=== PATIENT | male | born 1955 | race Caucasian/White ===

== ENCOUNTER 2018-03-06 03:20 | Outpatient (RCR) | payer BC, SELFPAY ==
[2018-03-06] MEDS: Normal Saline Flush 10 ML SYR IVP (07:47)
[2018-03-06 07:57] VITALS: BP 129/77; PULSE 63
[2018-03-06] MEDS: IMMUNE GLOBULIN 10 GM/100 ML BTL 1.2 GM IV (07:58)
[2018-03-06 08:05] VITALS: BP 123/76; PULSE 63
[2018-03-06 08:20] VITALS: BP 118/74; PULSE 56
[2018-03-06 10:15] VITALS: BP 116/72; PULSE 79
[2018-03-06 14:13] VITALS: BP 131/73; PULSE 54
== END 2018-03-28 ==
LOC: INF 03:20
PROVIDERS: PCP Internal Medicine; Visit Provider Family Medicine
DX: G62.89 Other specified polyneuropathies (principal)
CPT/HCPCS: 96365; 96366; J1561

== ENCOUNTER 2018-04-01 01:40 | Outpatient (RCR) | payer BC, SELFPAY ==
[2018-04-01 08:10] VITALS: BP 113/66; PULSE 73; RESP 18; TEMP 36.7
[2018-04-01] MEDS: IMMUNE GLOBULIN 10 GM/100 ML BTL IVPB (08:12)
[2018-04-01] MEDS: Normal Saline Flush 10 ML SYR IVP (08:15)
[2018-04-01 08:30] VITALS: BP 90/54; PULSE 67; RESP 18; TEMP 36.6
[2018-04-01 08:46] VITALS: BP 108/63; PULSE 65; RESP 18; TEMP 36.6; O2SAT 95
[2018-04-01] MEDS: IMMUNE GLOBULIN 20 GM/200 ML BTL IVPB (09:11)
[2018-04-01 09:14] VITALS: BP 114/68; PULSE 58; RESP 18; TEMP 36.6; O2SAT 96
[2018-04-01] MEDS: IMMUNE GLOBULIN 40 GM/400 ML BTL IVPB (10:44)
== END 2018-04-27 23:59 | disposition home or self-care (01) ==
LOC: INF 01:40
PROVIDERS: PCP Internal Medicine; Visit Provider Family Medicine
DX: G62.89 Other specified polyneuropathies (principal)
CPT/HCPCS: 96365; 96366; J1459

== ENCOUNTER 2018-04-29 01:20 | Outpatient (RCR) | payer BC, SELFPAY ==
[2018-04-29] MEDS: IMMUNE GLOBULIN 10 GM/100 ML BTL IVPB (08:27)
[2018-04-29 08:36] VITALS: BP 109/71; PULSE 67; RESP 18; TEMP 37; O2SAT 95
[2018-04-29 08:50] VITALS: BP 103/63; PULSE 66; RESP 18; TEMP 37; O2SAT 96
[2018-04-29 09:05] VITALS: BP 119/68; PULSE 62; RESP 18; TEMP 36.9; O2SAT 95
[2018-04-29 09:35] VITALS: BP 121/73; PULSE 65; RESP 18; TEMP 36.7; O2SAT 94
[2018-04-29] MEDS: IMMUNE GLOBULIN 20 GM/200 ML BTL IVPB (09:42)
[2018-04-29 10:17] VITALS: BP 114/76; PULSE 56; RESP 17; TEMP 36.7; O2SAT 95
[2018-04-29 10:45] VITALS: BP 116/82; PULSE 55; RESP 17; TEMP 37; O2SAT 94
[2018-04-29] MEDS: IMMUNE GLOBULIN 40 GM/400 ML BTL IVPB (11:25)
[2018-04-29] MEDS: Normal Saline Flush 10 ML SYR IVP (15:00)
== END 2018-05-28 23:59 | disposition home or self-care (01) ==
LOC: INF 01:20
PROVIDERS: PCP Internal Medicine; Visit Provider Family Medicine
DX: G62.89 Other specified polyneuropathies (principal)
CPT/HCPCS: 96365; 96366; J1459

== ENCOUNTER 2018-06-04 01:23 | Outpatient (RCR) | payer BC, SELFPAY ==
[2018-06-04] VITALS (13 sets, daily range): BP systolic 107–140; BP diastolic 59–91; PULSE 44–71; RESP 18–20; TEMP 36.3–36.6; O2SAT 94–97
[2018-06-04] MEDS: Normal Saline Flush 10 ML SYR IVP (07:57)
[2018-06-04] MEDS: IMMUNE GLOBULIN 10 GM/100 ML BTL IVPB (08:03)
[2018-06-04] MEDS: IMMUNE GLOBULIN 20 GM/200 ML BTL IVPB (08:04)
[2018-06-04] MEDS: IMMUNE GLOBULIN 40 GM/400 ML BTL IVPB (08:05)
== END 2018-06-27 23:59 | disposition home or self-care (01) ==
LOC: INF 01:23
PROVIDERS: PCP Internal Medicine; Visit Provider Family Medicine
DX: G62.89 Other specified polyneuropathies (principal)
CPT/HCPCS: 96365; 96366; J1459

== ENCOUNTER 2018-07-08 01:36 | Outpatient (RCR) | payer BC, SELFPAY ==
[2018-07-08] VITALS (9 sets, daily range): BP systolic 114–135; BP diastolic 71–87; PULSE 50–75; RESP 14–16; TEMP 36.2–36.6; O2SAT 96–97
[2018-07-08] MEDS: IMMUNE GLOBULIN 10 GM/100 ML BTL 7 GM IVPB (08:36)
[2018-07-08] MEDS: IMMUNE GLOBULIN 20 GM/200 ML BTL IVPB (09:30)
[2018-07-08] MEDS: IMMUNE GLOBULIN 40 GM/400 ML BTL IVPB (11:00)
[2018-07-08] MEDS: Normal Saline Flush 10 ML SYR IVP (12:19)
== END 2018-07-28 23:59 | disposition home or self-care (01) ==
LOC: INF 01:36
PROVIDERS: PCP Internal Medicine; Visit Provider Family Medicine
DX: G62.89 Other specified polyneuropathies (principal)
CPT/HCPCS: 96365; 96366; J1459

== ENCOUNTER 2018-08-06 00:54 | Outpatient (RCR) | payer BC, SELFPAY ==
[2018-08-06 08:32] VITALS: BP 115/77; PULSE 76; RESP 18; TEMP 36.4; O2SAT 94
[2018-08-06] MEDS: IMMUNE GLOBULIN 10 GM/100 ML BTL 1.2 GM IVPB (08:49)
[2018-08-06 08:50] VITALS: BP 130/70; PULSE 73; RESP 18; TEMP 36; O2SAT 93
[2018-08-06] MEDS: Normal Saline Flush 10 ML SYR IVP (08:50)
[2018-08-06 09:05] VITALS: BP 104/62; PULSE 70; RESP 18; TEMP 36.4; O2SAT 94
[2018-08-06 09:25] VITALS: BP 109/61; PULSE 69; RESP 18; TEMP 36.2; O2SAT 95
[2018-08-06 09:40] VITALS: BP 105/61; PULSE 55; RESP 18; TEMP 36.4; O2SAT 95
[2018-08-06] MEDS: IMMUNE GLOBULIN 20 GM/200 ML BTL IVPB (10:00)
[2018-08-06 10:02] VITALS: BP 122/79; PULSE 50; RESP 18; TEMP 36.3; O2SAT 96
[2018-08-06] MEDS: IMMUNE GLOBULIN 40 GM/400 ML BTL IVPB (11:32)
== END 2018-08-28 23:59 | disposition home or self-care (01) ==
LOC: INF 00:54
PROVIDERS: PCP Internal Medicine; Visit Provider Family Medicine
DX: G62.89 Other specified polyneuropathies (principal)
CPT/HCPCS: 96365; 96366; J1459

== ENCOUNTER 2018-09-09 02:15 | Outpatient (RCR) | payer BC, SELFPAY ==
[2018-09-09] VITALS (8 sets, daily range): BP systolic 103–127; BP diastolic 60–84; PULSE 56–84; RESP 18; TEMP 36.5–36.6; O2SAT 94–98
[2018-09-09] MEDS: IMMUNE GLOBULIN 40 GM/400 ML BTL IVPB (08:31)
[2018-09-09] MEDS: IMMUNE GLOBULIN 10 GM/100 ML BTL IVPB (08:36)
[2018-09-09] MEDS: Normal Saline Flush 10 ML SYR IVP (08:37)
[2018-09-09] MEDS: IMMUNE GLOBULIN 20 GM/200 ML BTL IVPB (08:37)
== END 2018-09-25 23:59 | disposition home or self-care (01) ==
LOC: INF 02:15
PROVIDERS: PCP Internal Medicine; Visit Provider Family Medicine
DX: G62.89 Other specified polyneuropathies (principal)
CPT/HCPCS: 96365; 96366; J1459

== ENCOUNTER 2018-10-07 02:24 | Outpatient (RCR) | payer BC, SELFPAY ==
[2018-10-07 07:47] VITALS: BP 123/64; PULSE 77; RESP 18; TEMP 36.4; O2SAT 96
[2018-10-07] MEDS: IMMUNE GLOBULIN 20 GM/200 ML BTL IVPB (08:01)
[2018-10-07] MEDS: IMMUNE GLOBULIN 10 GM/100 ML BTL IVPB (08:01)
[2018-10-07] MEDS: Normal Saline Flush 10 ML SYR IVP (08:02)
[2018-10-07] MEDS: IMMUNE GLOBULIN 40 GM/400 ML BTL IVPB (08:02)
[2018-10-07 08:18] VITALS: BP 124/82; PULSE 57; TEMP 36.4; O2SAT 96
[2018-10-07 08:40] VITALS: BP 133/82; PULSE 53; RESP 18; TEMP 36.4; O2SAT 94
[2018-10-07 09:20] VITALS: BP 137/84; PULSE 57; TEMP 36.2; O2SAT 96
[2018-10-07 09:30] VITALS: BP 126/85; PULSE 55; RESP 18; TEMP 36.2; O2SAT 96
== END 2018-10-26 23:59 | disposition home or self-care (01) ==
LOC: INF 02:24
PROVIDERS: PCP Internal Medicine; Visit Provider Family Medicine
DX: G62.89 Other specified polyneuropathies (principal)
CPT/HCPCS: 96365; 96366; J1459

== ENCOUNTER 2018-11-05 00:46 | Outpatient (RCR) | payer BC, SELFPAY ==
[2018-11-05] VITALS (8 sets, daily range): BP systolic 109–131; BP diastolic 67–87; PULSE 55–107; RESP 18; TEMP 36–36.6; O2SAT 95–99
[2018-11-05] MEDS: IMMUNE GLOBULIN 40 GM/400 ML BTL IVPB (08:35)
[2018-11-05] MEDS: IMMUNE GLOBULIN 10 GM/100 ML BTL IVPB (08:35)
[2018-11-05] MEDS: IMMUNE GLOBULIN 20 GM/200 ML BTL IVPB (08:35)
[2018-11-05] MEDS: Normal Saline Flush 10 ML SYR IVP (08:36)
== END 2018-11-25 23:59 | disposition home or self-care (01) ==
LOC: INF 00:46
PROVIDERS: PCP Internal Medicine; Visit Provider Family Medicine
DX: G62.89 Other specified polyneuropathies (principal)
CPT/HCPCS: 96365; 96366; J1459

== ENCOUNTER 2018-12-02 02:32 | Outpatient (RCR) | payer BC, SELFPAY ==
[2018-12-02 07:56] VITALS: BP 107/70; PULSE 62; RESP 16; TEMP 36.4; O2SAT 96
[2018-12-02] MEDS: IMMUNE GLOBULIN 10 GM/100 ML BTL IVPB ×2 (08:09→09:21)
[2018-12-02] MEDS: Normal Saline Flush 10 ML SYR IVP (08:19)
[2018-12-02 08:25] VITALS: BP 114/72; PULSE 64; RESP 18; TEMP 36.3; O2SAT 97
[2018-12-02 08:49] VITALS: BP 114/70; PULSE 60; TEMP 36.2; O2SAT 95
[2018-12-02 09:12] VITALS: BP 115/67; PULSE 60; RESP 18; TEMP 36.2; O2SAT 99
[2018-12-02] MEDS: IMMUNE GLOBULIN 20 GM/200 ML BTL IVPB (09:56)
[2018-12-02] MEDS: IMMUNE GLOBULIN 40 GM/400 ML BTL IVPB (11:38)
[2018-12-02 15:08] VITALS: BP 149/94; PULSE 61; RESP 18; TEMP 36.1; O2SAT 98
== END 2018-12-26 23:59 | disposition home or self-care (01) ==
LOC: INF 02:32
PROVIDERS: PCP Internal Medicine; Visit Provider Family Medicine
DX: G62.89 Other specified polyneuropathies (principal)
CPT/HCPCS: 96365; 96366; J1459

== ENCOUNTER 2018-12-03 15:42 | Outpatient (REF) | payer BC, SELFPAY ==
[2018-12-03 22:31] LABS: Cholesterol 232 mg/dL (50-200); HDL Cholesterol 56 mg/dL (40-60); LDL CHOLESTEROL 161 mg/dL (<100); Triglyceride 75 mg/dL (30-150)
[2018-12-05 08:47] LABS: PSA, Screening 0.6 ng/ml (0-4.5)
== END 2018-12-03 16:02 ==
LOC: NCHCN 15:42
PROVIDERS: PCP Internal Medicine; Visit Provider Internal Medicine
DX: Z00.00 Encounter for general adult medical examination without abnormal findings (principal); Z13.220 Encounter for screening for lipoid disorders; Z12.5 Encounter for screening for malignant neoplasm of prostate; Z80.42 Family history of malignant neoplasm of prostate
CPT/HCPCS: 80061; 83721; 84153

== ENCOUNTER 2019-01-01 01:43 | Outpatient (RCR) | payer BC, SELFPAY ==
[2019-01-01] MEDS: IMMUNE GLOBULIN 40 GM/400 ML BTL IVPB (08:11)
[2019-01-01] MEDS: IMMUNE GLOBULIN 20 GM/200 ML BTL IVPB (08:12)
[2019-01-01] MEDS: Normal Saline Flush 10 ML SYR IVP (08:12)
[2019-01-01] MEDS: IMMUNE GLOBULIN 10 GM/100 ML BTL IVPB (08:12)
[2019-01-01 08:16] VITALS: BP 118/79; PULSE 71; RESP 18; TEMP 36.4; O2SAT 95
[2019-01-01 08:19] LABS: Absolute Basophil Count 0.01 k/cumm (0.0-0.2); Absolute Eosinophil Count 0.21 k/cumm (0.0-0.7); Absolute Lymphocyte Count 1.24 k/cumm (1.2-3.4); Absolute Monocyte Count 0.26 k/cumm (0.11-0.7); Absolute Neutrophil Count 1.88 k/cumm (1.2-6.7); Basophils % 0.3; Eosinophils % 5.8; HCT 43.7 % (40.0-50.0); HGB 14.6 g/dL (13.5-17.5); Lymphocytes % 34.4; Mean Corp. HGB Concentration 33.4 g/dL (32.0-36.0); Mean Corpuscular Hemoglobin 31.6 pg (27.0-33.0); Mean Corpuscular Volume 94.6 fL (80-95); Mean Platelet Volume 10.2 fL (8.0-11.0); Monocytes % 7.2; Neutrophils % 52.3; Platelet Count 186 x1000/uL (130-400); RBC 4.62 m/cumm (4.50-6.00); RBC Distribution Width 13.7 % (11.8-14.1)
[2019-01-01 08:33] VITALS: BP 124/79; PULSE 70; TEMP 36.4; O2SAT 96
[2019-01-01 08:33] LABS: ALT 64 U/L (12-78); AST 43 U/L (15-37); Albumin 3.5 g/dL (3.4-5.0); Alkaline Phosphatase 98 U/L (46-116); Anion Gap 10.1 mmol/L (3-11); BUN 24 mg/dL (7-18); Bilirubin, Total 0.3 mg/dL (0.2-1.0); CO2 26.9 mmol/L (21.0-32.0); CREATININE 0.94 mg/dL (0.70-1.30); Chloride 102 mmol/L (98-107); Glucose 162 mg/dL (70-100); Sodium 139 mmol/L (136-145); Total Protein 7.5 g/dL (6.4-8.2)
[2019-01-01 09:03] VITALS: BP 125/81; PULSE 68; TEMP 36.5; O2SAT 97
[2019-01-01 09:47] VITALS: BP 136/80; PULSE 56; RESP 18; TEMP 36.4; O2SAT 97
== END 2019-01-25 23:59 | disposition home or self-care (01) ==
LOC: INF 01:43
PROVIDERS: PCP Internal Medicine; Visit Provider Psychiatry & Neurology Neurology
DX: G61.81 Chronic inflammatory demyelinating polyneuritis (principal)
CPT/HCPCS: 36415; 80053; 96365; 96366; 85025; J1459

== ENCOUNTER 2019-03-06 08:19 | Day surgery (SDC) | payer BC, SELFPAY ==
[2019-03-06 08:44] VITALS: BP 126/84; PULSE 68; RESP 15; TEMP 35.9; O2SAT 98
[2019-03-06] MEDS: Lactated Ringers 1,000 ML 80 ML IV (08:45)
--- NOTE | 2019-03-06 09:46 | BOWEL_PTH ---
PATIENT: Pastor Wang LOC: [facility] U#:[id number] AGE/SX: 63/M ROOM: RE03/06/[address]: Anahi Norwood MD : 1955 BED: DIS: 03/06/2019 SPEC #: [id number] RECD: 03/06/19 12:45 STATUS: TARUN REQ #: [id number] LILLIANA: 03/06/19 09:[address]: Anahi Norwood DEPT: Surgical Specimen RECD BY: Xiomara Davis ENTERED: 03/06/19 12:46 SP TYPE: Bowel OTHR DR: Mariel Mendoza Tissues: 1 - BIOPSY BOWEL Procedures: GROSS AND MICRO LEVEL 4 Comments: [id number]
--- NOTE | 2019-03-06 10:01 | W.PM.DSUDISC ---
Discharge Plan Disposition Patient Disposition: HOME Condition: Good Discharge Details Reason For Visit: Colonoscopy Attending Provider: Anahi Norwood Primary Care Provider: Mariel Mendoza Home Meds and New Rx's Prescriptions: Continued triamcinolone acetonide 0.1 % cream 1 applic TP BID RF: 0 tamsulosin [Flomax] 0.4 mg capsule 0.4 mg PO DAILY RF: 0 IVIG IV RF: 0 Discharge Instructions Additional Instructions: Findings: Diverticulosis was present. A biopsy was taken from a mild inflamed area. My office will call with results. This may be related to diverticulosis. Follow up: Plan for screening colonoscopy in 10 years or sooner if symptoms arise. Please call if you develop: fevers >101.5 Nausea or Vomiting Abdominal pain that is not transient DAY SURGERY UNIT POST COLONOSCOPY INSTRUCTIONS 1. Because there will be medication in your system for the next 24 hours, you may feel a little sleepy. Your coordination will be affected. Therefore: a. Do not drive or operate dangerous equipment for 24 hours. b. Do not drink alcohol beverages for 24 hours (not even beer). c. Plan to go home and rest for the day. 2. Generally there are no restrictions on your activity after a day or so has gone by, but you may feel a bit fatigued for a few days. 3 After you arrive home you may have a light meal and return to a normal diet as you can tolerate it without feeling sick to your stomach. 4. After surgery, you may feel pain or discomfort. This should be only transient, but if it persists please contact your doctor. 5. If there are any questions regarding the findings of your procedure, please feel free to contact your doctor. 6. If you are unable to contact your doctor with a problem, contact the hospital at [phone]. 7. Continue all your regular medications unless directed otherwise. I understand the above instructions and have no questions. Signature of Patient or Responsible Adult Escort Date/Time Name of Responsible Adult Escort Signature of Nurse Date/Time Activity:: Activity as Tolerated Diet:: As Tolerated Discharge Orders Discharge Orders: Discharge Order (Routine); Ordered 03/06/19 Ordered By: Anahi Norwood DS: Diagnosis Discharge Diagnosis (1) Diverticulosis: Status: Acute (2) S/P colonoscopy:
[2019-03-06 10:41] VITALS: BP 131/90; PULSE 51; RESP 16; TEMP 35.9; O2SAT 96
--- NOTE | 2019-03-06 11:32 | COLE_ITS ---
DATE OF PROCEDURE: March 06, 2019 PREOPERATIVE DIAGNOSIS: Screening. POSTOPERATIVE DIAGNOSIS: 1. Diverticulosis. 2. Descending colon inflammation. PROCEDURE: Colonoscopy with biopsy. SURGEON: Anahi Norwood M.D. ANESTHESIA: Monitored Anesthesia Care INDICATIONS: This is a 63-year-old man who presents for routine colon evaluation. His last colonosc opy was approximately ten years ago. He is asymptomatic. He has no family history of colon cancer. PROCEDURE: He was placed in the left Solorzano position. Propofol was titrated to sedation. Digital rec drew examination revealed no abnormalities. The scope was advanced to the cecum without difficulty. His prep was excellent. The ileocecal valve and appendiceal orifice were clearly identified. The sc ope was slowly withdrawn with no abnormalities seen within the ascending or transverse colon. At 40 cm in the descending colon there was a focal area of inflammation. This was biopsied. This was in t he vicinity of diverticular change and may represent a small pocket of diverticulitis. No other abno rmalities were seen throughout the sigmoid colon or rectum, including on retroflex view, with the exc eption of the above-mentioned diverticular change. He tolerated the procedure well and was stable to recovery. He will need a follow-up screening again in ten years or sooner if symptoms indicate. My office will contact him with the biopsy results. cc: Aj Andrew M.D.
== END 2019-03-06 11:08 | disposition home or self-care (01) ==
PROVIDERS: PCP Internal Medicine; Visit Provider Surgery
PROC: 0DJD8ZZ Inspection of Lower Intestinal Tract, Via Natural or Artificial Opening Endoscopic (ICD-10-PCS; CPT 45378; principal; 2019-03-06 09:30)
DX: Z12.11 Encounter for screening for malignant neoplasm of colon (principal); K57.30 Diverticulosis of large intestine without perforation or abscess without bleeding
CPT/HCPCS: 45380; 88305

== ENCOUNTER 2019-11-24 10:34 | Outpatient (CLI) | payer BC, SELFPAY ==
--- NOTE | 2019-11-24 09:30 | DI.RAD_ITS ---
EXAM: XR FOOT RT COMPLETE CLINICAL HISTORY: pain TECHNIQUE: COMPARISON: No exams were available for comparison FINDINGS: Four views were obtained. There are mild degenerative changes of the joints of the midfoot and the I P joints. Bony alignment appears within normal limits. No other significant abnormality seen. IMPRESSION:
== END 2019-11-24 10:54 ==
PROVIDERS: PCP Internal Medicine; Visit Provider Orthopaedic Surgery
DX: M79.671 Pain in right foot (principal); M19.071 Primary osteoarthritis, right ankle and foot
CPT/HCPCS: 73630

== ENCOUNTER 2019-12-03 01:52 | Outpatient (CLI) | payer BC, SELFPAY ==
--- NOTE | 2019-12-03 | DI.MRI_ITS ---
EXAM: MR LOWER JOINT RT WO CLINICAL HISTORY: RT PERONEAL TENDINITIS. TECHNIQUE: Multiplanar multisequence MRI was performed. The field of view includes the distal tibia and fibula through the proximal phalanges. COMPARISON: CR XR FOOT RT COMPLETE from 11/24/2019 FINDINGS: There is fluid around the peroneal tendons as well as some edema in the subcutaneous fat. There i s abnormal increased signal with in both peroneus longus and brevis tendons beneath the level of the lateral malleolus and extending distally to the level of the talocalcaneal joint. The peroneus brevi s tendon appears split posterior to the lateral malleolus. Proximally and distally the peroneus long us and brevis tendons appear intact. The Achilles tendon and plantar fascia are unremarkable. The a nterior and medial tendons appear intact. The marrow signal is normal. There is a small ankle joint effusion. No retinacular tear is are seen. IMPRESSION: Split peroneal brevis tendon and peroneal tenosynovitis. DATA REPOSITORY:
== END 2019-12-03 02:12 ==
PROVIDERS: PCP Internal Medicine; Visit Provider Orthopaedic Surgery
DX: S86.391A Other injury of muscle(s) and tendon(s) of peroneal muscle group at lower leg level, right leg, initial encounter (principal); M76.71 Peroneal tendinitis, right leg; R60.0 Localized edema; M25.471 Effusion, right ankle
CPT/HCPCS: 73721

== ENCOUNTER 2020-01-01 08:39 | Outpatient (CLI) | payer BC, SELFPAY ==
[2020-01-02 12:51] LABS: COVID-19 RT-PCR UVMMC Result Negative (Negative)
== END 2020-01-01 08:59 ==
PROVIDERS: PCP Internal Medicine; Visit Provider Orthopaedic Surgery
DX: Z11.59 Encounter for screening for other viral diseases (principal); Z01.818 Encounter for other preprocedural examination
CPT/HCPCS: U0003

== ENCOUNTER 2020-01-04 07:08 | Day surgery (SDC) | payer BC, SELFPAY ==
[2020-01-04 07:40] VITALS: BP 131/79; PULSE 68; RESP 16; TEMP 36.4; O2SAT 97
[2020-01-04] MEDS: Lactated Ringers 1,000 ML 80 ML IV (08:05)
[2020-01-04] MEDS: ceFAZolin 2 GM/50 ML BAG IVPB (09:41)
--- NOTE | 2020-01-04 10:23 | TENDON_PTH ---
PATIENT: Pastor Wang LOC: [facility] U#:[id number] AGE/SX: 64/M ROOM: RE01/04/[address]: Wilfrido Colbert MD : 1955 BED: DIS: 01/04/2020 SPEC #: [id number] RECD: 01/04/20 12:27 STATUS: TARUN YODER #: [id number] LILLIANA: 01/04/20 10:[address]: Wilfrido Colbert DEPT: Surgical Specimen RECD BY: Xiomara Davis ENTERED: 01/04/20 12:28 SP TYPE: TENDON OTHR DR: Mariel Mendoza Tissues: 1 - TENDON SHEATH, NOS Procedures: GROSS AND MICRO LEVEL 4 Comments: [id number]
--- NOTE | 2020-01-04 11:15 | W.PM.DSUDISC ---
Discharge Plan Disposition Patient Disposition: HOME Condition: Good Discharge Details Reason For Visit: Explore peroneal tendons R Attending Provider: Wilfrido Colbert Primary Care Provider: Mariel Mendoza Home Meds and New Rx's Prescriptions: New oxycodone-acetaminophen 5-325 mg tablet 1 tab PO Q6H PRN (Reason: pain) Qty: 10 RF: 0 Continued triamcinolone acetonide 0.1 % cream 1 applic TP BID RF: 0 tamsulosin [Flomax] 0.4 mg capsule 0.4 mg PO DAILY RF: 0 IVIG IV RF: 0 ibuprofen 800 mg Tablet 800 mg PO TID RF: 0 Discharge Instructions Additional Instructions: Elevate R foot on 1-2 pillows when sitting. Crutches to walk. Only put as much weight on R foot as your pain allows. Gradually, put increasing weight on R foot if it doesn't hurt. May take R foot out of walking brace, remove post op dressings and shower on Saturday. Remove the post-op dressings and let the water and soap contact the incision. After showering, apply light gauze pad to incision. When the incision is dry and sealed, you may leave it uncovered, if you prefer. Wear the walking brace 18/02. May remove brace to shower. After 48 hours, may take R foot out of brace 4 times/day to move R ankle up and down and to air out your foot. Once you remove dressings on Saturday, you should wear a cotton atheletic stocking in the brace to absorb perspiration. Continue ibuprofen 800 mg 3 times/day. Take oxycodone for breakthru pain, if needed. Follow up with in 2 weeks. Referrals: Wilfrido Colbert MD [ [facility] STAFF PHYSICIAN] - (f/u in 2 weeks) Equipment/Supplies: Brace and Partial Weight Bearing Crutches Activity:: Activity as Tolerated Diet:: As Tolerated Discharge Orders Discharge Orders: Discharge Order (Routine); Ordered 01/04/20 Ordered By: Wilfrido Colbert DS: Diagnosis Discharge Diagnosis (1) Peroneal tendinitis, right leg: Status: Acute
[2020-01-04 11:37] VITALS: BP 101/57; PULSE 53; RESP 8; TEMP 36; O2SAT 99
[2020-01-04 11:42] VITALS: BP 104/57; PULSE 50; RESP 8; TEMP 36; O2SAT 99
[2020-01-04 11:47] VITALS: BP 93/58; PULSE 51; RESP 8; TEMP 36; O2SAT 99
[2020-01-04 12:02] VITALS: BP 114/70; PULSE 60; RESP 12; TEMP 36; O2SAT 99
[2020-01-04 12:40] VITALS: BP 156/72; PULSE 55; RESP 16; TEMP 35.2; O2SAT 96
[2020-01-04] MEDS: Acetaminophen 325 MG TAB 650 MG PO (13:03)
--- NOTE | 2020-01-04 15:42 | W.PM.OP ---
Date of service: 01/04/20 Time of Service: 15:42 Operative Note Operative Note DATE OF PROCEDURE: 01/04/20 PRE-OP DIAGNOSIS: Chronic peroneal tendinitis right, possible peroneal tendon rupture. Chronic peroneal tendon rupture right PROCEDURE: Exploration peroneal tendons right ankle with debridement of chronic tear of the peroneus longus tendon and debridement and repair of longitudinal tear in the peroneus brevis tendon. SURGEON: Wilfrido Colbert ASSISTING SURGEON: Jossie Nye ANESTHESIA: GETA ESTIMATED BLOOD LOSS: 0 PATHOLOGY: other TOURNIQUET TIME: 60 COMPLICATIONS: None Patient was transported to: PACU Patient's condition: stable Indications: Is a 64-year-old again morning who has had right lateral ankle pain beginning 5 months ago. He was a delay in seeking treatment because of a peripheral neuropathy. He does not remember any serious trauma. The pain is especially aggravated by uneven ground which he has to walk as part of his job. He is tried gel braces and splints without relief. Physical exam showed swelling and localized discomfort over the peroneal tendons distal to the fibula. MRI scan confirmed excess fluid in the peroneal tendon sheath distal to the fibula along with the abnormal signal in the peroneal tendons which could signal tendon rupture. Exploration of peroneal tendons with debridement/repair as indicated was recommended to alleviate his pain. Risk on case of procedure explained patient detai Findings: Patient had a partial-thickness rupture of the peroneus longus tendon. There was thickened scar around the chronic rupture site and this tissue was debrided and sent for pathological examination. The peroneus brevis tendon had synovitis and a longitudinal split in the tendon. Both tendons appeared normal proximal to the tip of the fibula. Procedure Description: Patient in the operating room on 01/04/2020 and placed supine operative table. General anesthetic was administered. Once good anesthesia was obtained a large bump was placed under his right buttock. His right foot and lower leg were then prepped and draped free in usual sterile fashion. Incision was made following the course of the peroneal tendons began just posterior to the fibula border and about 3 cm proximal to the tip of the fibula and then was carried distally along the course of the peroneal tendon sheath. As the peroneal tendon sheath was incised posterior to the fibular there was normal amount of fluid with no synovitis. As I incised the sheath distally there was a lots of excess fluid around the peroneal tendons. I encountered a markedly thickened, tuberous peroneus longus tendon. As a debrided the fibrous material causing the thickened tendon I was not able to see any normal tendon until I got to the plantar 20%. I sent the debrided tissue pathological examination. Look just like a old chronic rupture. I debrided until the tendon disappeared distally into the tunnel across the plantar aspect of the foot. Mild synovitis was present and this was debrided as well. The peroneus brevis did not have any significant fibrous thickening, but on careful inspection the tendon was split longitudinally. I repaired the longitudinal split with a interlocked running 4-0 Vicryl suture. The this suture was applied in a fashion that tubularized the tendon. At this point the wound was irrigated with saline solution. Hemostasis was obtained with electrocautery. The wound margins were infiltrated with 0.25% Marcaine with epinephrine solution. I repaired the peroneal tendon sheath posterior to the fibula with a running interlocked 2-0 Vicryl suture. Distal to the fibula I repaired the peroneal tendon sheath with interrupted [id number] sutures of 2-0 Vicryl suture. I did not attempt to repair the distal 2 cm of the peroneal tendon sheath over the hindfoot, so the tendon sheath could drain. Skin and subcu were approximated with horizontal mattress sutures of 4-0 nylon suture material. Wound was dressed with Xeroform gauze sterile gauze 4 x 4's ABD pads wrapped with a 4 inch Kerlix bandage. She is then wrapped with a 4 inch Josue bandage and the right foot was placed in a Aircast fracture walking brace. Tourniquet was released patient's anesthesia reversed complication patient was discharged to recovery in good condition. Patient was later discharged home from the surgery and fully recovered from his general anesthesia. Given instructions to try to elevate his right foot on 1-2 pillows whenever he is sitting. He is to use crutches to walk and may be partial weightbearing as tolerated to the right foot in 48 hours. He is to wear the fracture walking brace 18/02 until he follows up in my office in 2 weeks. I will allow him to take his right foot out of the brace to shower in 3-4 times a day to perform gentle ankle dorsiflexion plantarflexion exercises. He may remove his dressing shower and get his incision wet on 01/08/2020. He may leave his incision uncovered when it is dry and sealed. After he remove the dressings and showers on Saturday, he should use a cotton athletic sock in the brace to absorb perspiration. He will continue with ibuprofen 800mg p.o. 3 times daily. He is given a prescription for breakthrough pain of the oxycodone with acetaminophen 11/28/2024 1 tab every 6 hours if needed. He should follow-up with Dr. Colbert in 2 weeks.
== END 2020-01-04 13:45 | disposition home or self-care (01) ==
PROVIDERS: PCP Internal Medicine; Visit Provider Orthopaedic Surgery
PROC: (CPT 27650; principal; 2020-01-04 08:30)
DX: M76.71 Peroneal tendinitis, right leg (principal); G62.89 Other specified polyneuropathies; S86.311A Strain of muscle(s) and tendon(s) of peroneal muscle group at lower leg level, right leg, initial encounter; X58.XXXA Exposure to other specified factors, initial encounter; M65.9 Synovitis and tenosynovitis, unspecified
CPT/HCPCS: 28200; 27680; 88305; 88304; J0690; J1100; J1885; J2001; J2405; J2704; L4361

== ENCOUNTER 2020-03-28 09:47 | Day surgery (SDC) | payer BC, SELFPAY ==
[2020-03-28 09:50] VITALS: BP 100/70; PULSE 78; RESP 16; TEMP 36.4; O2SAT 94
--- NOTE | 2020-03-28 15:28 | W.PM.DSUDISC ---
Discharge Plan Disposition Patient Disposition: HOME Condition: Good Discharge Details Reason For Visit: R ANKLE WOUND INFECTION Admit Date/Time: 03/28/20 09:47 Admit Provider: Wilfrido Colbert Attending Provider: Wilfrido Colbert Primary Care Provider: Mariel Mendoza Home Meds and New Rx's Prescriptions: New oxycodone-acetaminophen 5-325 mg tablet 1 tab PO Q6H PRN (Reason: pain) Qty: 14 RF: 0 cephalexin 500 mg tablet 500 mg PO QID Qty: 20 RF: 1 Continued triamcinolone acetonide 0.1 % cream 1 applic TP BID RF: 0 tamsulosin [Flomax] 0.4 mg capsule 0.4 mg PO DAILY RF: 0 IVIG IV RF: 0 ibuprofen 800 mg Tablet 800 mg PO TID RF: 0 Discontinued amoxicillin-pot clavulanate [Augmentin] 500-125 mg tablet 1 tab PO BID Qty: 14 RF: 0 amoxicillin-pot clavulanate [Augmentin] 500-125 mg tablet 1 tab PO BID Qty: 14 RF: 0 Discharge Instructions Additional Instructions: Try to elevate R ankle on 2-3 pillows as much as possible for next 48 hours. May step on R foot using walking brace and crutches. Only put as much weight on R foot as your pain allows. Take your antibiotics every 6 hours starting at midnite tonite. Keep dressings dry and intact until return. Return to 's office for wound check on Sat. Keep walking brace on at all times. Referrals: Wilfrido Colbert MD [ [facility] STAFF PHYSICIAN] - (f/u on Sat03/30/20) Activity:: Activity as Tolerated Equipment/Supplies:: Crutches Diet:: As Tolerated Discharge Orders Discharge Orders: Discharge Order (Routine); Ordered 03/28/20 Ordered By: Wilfrido Colbert
[2020-03-28 15:44] VITALS: BP 103/36; PULSE 79; RESP 18; TEMP 36.8; O2SAT 95
[2020-03-28 15:49] VITALS: BP 97/54; PULSE 74; RESP 15; TEMP 36.8; O2SAT 95
[2020-03-28 15:54] VITALS: BP 96/59; PULSE 75; RESP 14; TEMP 36.8; O2SAT 95
[2020-03-28 16:09] VITALS: BP 109/66; PULSE 74; RESP 17; TEMP 36.8; O2SAT 95
[2020-03-28 16:50] VITALS: BP 107/66; PULSE 58; RESP 18; TEMP 36.6; O2SAT 94
--- NOTE | 2020-03-29 12:23 | W.PM.OP ---
Date of service: 03/28/20 Time of Service: 12:23 Operative Note Operative Note DATE OF PROCEDURE: 03/28/20 PRE-OP DIAGNOSIS: Wound infection right peroneal tendons PROCEDURE: Irrigation debridement of wound infection peroneal tendon sheath. SURGEON: Wilfrido Colbert DIE TRY OUT WORKER STAMPING: Jossie Nye ANESTHESIA: GETA PATHOLOGY: none sent COMPLICATIONS: None Patient was transported to: PACU Patient's condition: stable Indications: Is a 64-year-old white male who underwent a synovectomy and repair of ruptured peroneal tendon on 01/04/2020. He did well initially but developed a superficial wound infection in early February. He was treated with Augmentin and appeared to respond well. He said he was doing all his activities including cutting the lawn until Saturday. He developed pain and swelling on the lateral ankle. He then developed drainage from the distal end of his surgical scar. The drainage was obviously purulent. He was seen in my office by Dr. Ellis this morning who felt he needed formal irrigation debridement of his wound infection. He sent me a photo from his cell phone and I concurred with his assessment. He will undergo a formal irrigation debridement of his wound with the possibility that he could be admitted for IV antibiotics. Procedure Description: Patient was taken the operating room on 03/28/2020 where he was placed supine operating table. General anesthetic was administered. The right foot ankle and lower leg were prepped with Betadine solution and draped free in usual sterile fashion. Proximal tourniquet was applied was inflated 350 mmHg. There was obvious purulent drainage from the open distal part of the incision. I made an incision in the old scar extending proximally about 3 to 4 cm to get better visualization. There is obvious purulence coming along the peroneal tendons and approximately foot peroneal tendon sheath posterior to the fibula. Peroneus brevis was still intact. Peroneus longus was ruptured and nonfunctional. I debrided all devitalized tissue from the wound margins. I was able to in a clean wound with bleeding from all wound edges. The wound was then thoroughly irrigated with 6 saline solution. I apply powdered vancomycin to the depths of the wound and I closed the incision I made with near far far near sutures of interrupted 3-0 nylon's suture material. I I did not attempt to close the distal part of the incisional scar that was open. I decided to leave it open for free drainage. Deep intraoperative cultures were made at the beginning of the procedure. Wound was dressed with Xeroform gauze, sterile gauze 4 x 4's, wrapped with a Kerlix bandage and then wrapped with a 4 inch Josue bandage. He was then placed in a Aircast fracture walking boot. Tourniquet was released at this point there was no breakthrough bleeding to the dressings. Patient's anesthesia was reversed all complications and he was discharged to recovery room good condition. When I saw him in the recovery room he was pain-free. Hospital census was maxed out, so I decided to treat him as an outpatient. He was given 2 g of Rocephin IV in the recovery room. He was discharged home from the day surgery unit and fully recovered from his general anesthesia. He is given instructions to leave his dressings alone and keep his splint in place until follow-up in my office in 48 hours on 03/30/2020. He is given a prescription for Keflex 500 mg every 6 hours which she will start at midnight tonight. He is given a prescription for pain of oxycodone with acetaminophen 5/325, 1 p.o. every 6 hours as needed pain. I will perform the dressing change on his ankle in 48 hours.
== END 2020-03-28 17:20 | disposition home or self-care (01) ==
LOC: PDS 15:29 → DSU 03-29 10:27 → PDS 03-29 10:27
PROVIDERS: PCP Internal Medicine; Visit Provider Orthopaedic Surgery
PROC: (CPT 11043; principal; 2020-03-28 13:15)
DX: T81.49XA Infection following a procedure, other surgical site, initial encounter (principal); M65.171 Other infective (teno)synovitis, right ankle and foot
CPT/HCPCS: 11043; 87077; 87070; 87075; 87186; 87205; J0131; J1100; J1885; J2001; J2405; L4361

== ENCOUNTER 2020-06-13 11:22 | Outpatient (REF) | payer BC, SELFPAY ==
[2020-06-16 17:42] LABS: Patient Race White; SARS-CoV-2 RNA Undetected (Undetected); SARS-CoV-2 Specimen Source Nasal
== END 2020-06-13 11:42 ==
LOC: NCHCN 11:22
PROVIDERS: PCP Internal Medicine; Visit Provider Internal Medicine
DX: Z20.828 Contact with and (suspected) exposure to other viral communicable diseases (principal)
CPT/HCPCS: U0003

== ENCOUNTER 2020-07-06 08:00 | Outpatient (REF) | payer BC, SELFPAY ==
[2020-07-06 23:03] LABS: ALT 44 U/L (16-63); AST 36 U/L (15-37); Albumin 3.2 g/dL (3.4-5.0); Alkaline Phosphatase 92 U/L (46-116); Bilirubin, Total 0.3 mg/dL (0.2-1.0); Calculated LDL 138 mg/dL (<100); Cholesterol 226 mg/dL (<200); Glucose 92 mg/dL (74-106); HDL Cholesterol 72 mg/dL (40-60); Total Protein 9.7 g/dL (6.4-8.2); Triglyceride 81 mg/dL (<150)
[2020-07-06 23:26] LABS: Bilirubin, Direct 0.07 mg/dL (0.00-0.20)
== END 2020-07-06 08:20 ==
LOC: NCHCN 08:00
PROVIDERS: PCP Internal Medicine; Visit Provider Internal Medicine
DX: E78.5 Hyperlipidemia, unspecified (principal); R73.03 Prediabetes; R79.89 Other specified abnormal findings of blood chemistry
CPT/HCPCS: 80061; 80076; 82947

== ENCOUNTER 2020-10-27 01:30 | Outpatient (CLI) | payer BC, SELFPAY ==
--- NOTE | 2020-10-27 | DI.MRI_ITS ---
EXAM: MR LOWER JOINT RT WO CLINICAL HISTORY: RT ANKLE INSTABILITY,M25.371,EVALUATE PERONEAL TENDONS AND MUSCLE BODY TECHNIQUE: Multiplanar multisequence MRI of the knee was performed. COMPARISON: CR XR FOOT RT COMPLETE from 11/24/2019 MR MR LOWER JOINT RT WO from 12/03/2019 FINDINGS: MARROW: There is no evidence fracture prominent bone contusion. No ominous osseous lesions. No evid ence of pes planus. No osseous tarsal coalition evident. ARTICULATIONS: There is a mild-moderate ankle joint effusion. No erosions. No evidence of para-marquita cular ganglion. TALAR DOME: No evidence of degenerative subarticular cyst nor osteochondral defect. SINUS TARSI: Interosseous ligament appears intact. No obvious loss of normal fat signal therein to s uggest sinus tarsi syndrome. No abnormal intraosseous signal in the sustentacular talus. LIGAMENTS: Anterior and posterior tibiofibular ligaments are intact. Anterior talofibular ligament is intact. Posterior talofibular ligament is intact. Suspensory ligament is intact. Deltoid ligament is intact. PLANTAR FASCIA: Unremarkable TENDONS: The Achilles tendon is intact. Tibialis posterior and flexor digitorum longus tendons appear intact. No tenosynovitis. Flexor cuevas ucis longus appears intact and also without tenosynovitis. Laterally the peroneus longus and brevis tendons appear intact. No obvious tear or tenosynovitis. Dorsal extensor tendons appear intact. LISFRANC JOINT TENDON: Appears intact. IMPRESSION: 1. Minimal findings. Small ankle joint effusion. 2. No obvious tendon tears or tenosynovitis. 3. No abnormal marrow signal. 4. DATA REPOSITORY:
== END 2020-10-27 01:50 ==
PROVIDERS: PCP Internal Medicine
DX: M25.371 Other instability, right ankle (principal); M25.471 Effusion, right ankle
CPT/HCPCS: 73721

== ENCOUNTER 2021-07-06 08:06 | Outpatient (REF) | payer MEDICARE, BC, SELFPAY ==
[2021-07-06 15:06] LABS: ALT 37 U/L (16-63); AST 31 U/L (15-37); Albumin 3.6 g/dL (3.4-5.0); Alkaline Phosphatase 80 U/L (46-116); Anion Gap 9.6 mmol/L (3-11); BUN 22 mg/dL (7-18); Bilirubin, Total 0.5 mg/dL (0.2-1.0); CO2 28.4 mmol/L (21.0-32.0); CREATININE 0.9 mg/dL (0.70-1.30); Calcium 8.6 mg/dL (8.5-10.1); Calculated LDL 155 mg/dL (<100); Chloride 102 mmol/L (98-107); Cholesterol 230 mg/dL (<200); Glucose 89 mg/dL (74-106); HDL Cholesterol 57 mg/dL (40-60); Potassium 4.1 mmol/L (3.5-5.1); Sodium 140 mmol/L (136-145); Total Protein 6.9 g/dL (6.4-8.2); Triglyceride 91 mg/dL (<150)
== END 2021-07-06 08:07 | disposition home or self-care (01) ==
LOC: NCHCN 08:06
PROVIDERS: PCP Internal Medicine; Visit Provider Internal Medicine
DX: E78.5 Hyperlipidemia, unspecified (principal); Z00.00 Encounter for general adult medical examination without abnormal findings
CPT/HCPCS: 80053; 80061

== ENCOUNTER 2021-08-25 01:32 | Outpatient (CLI) | payer MEDICARE, BC, SELFPAY ==
--- NOTE | 2021-08-25 10:30 | DI.US_ITS ---
APPROVED REPORT EXAM: Comprehensive 2D, Doppler, and color-flow Echocardiogram Patient Location: Out-Patient Regional Driver: Shell Medina RDCS (AE) Indications: Cardiomyopathy, Hyperlipidemia Other Information Study Quality: Adequate Conclusion Normal left ventricular wall thickness and chamber size. Estimated ejection fraction is 60%. Wall m otion is normal Normal right ventricular size and systolic function Both atria are normal in size The aortic valve is sclerotic and trileaflet. There is mild to moderate aortic regurgitation. There is no aortic stenosis Mild mitral annular calcification. Trace to mild mitral regurgitation Normal tricuspid valve with trace regurgitation. Estimated right ventricular systolic pressure is 24 mmHg Dilated ascending aorta measuring 3.8 cm Wall motion Left Ventricle The left ventricle is normal size. The left ventricular systolic function is normal. The left ventric ular ejection fraction is within the normal range. There is normal left ventricular wall thickness. T here is normal LV segmental wall motion. There is no ventricular septal defect visualized. LVEF is 60 %. Right Ventricle The right ventricle is normal size. The right ventricular systolic function is normal. The RVSP is 24 .4mmHg. Atria The left atrium size is normal. The right atrium size is normal. The interatrial septum is intact wit h no evidence for an atrial septal defect. Aortic Valve The Aortic valve is sclerotic. Aortic valve is trileaflet. There is no aortic valvular stenosis. Mild to moderate aortic regurgitation. Mitral Valve Mild mitral annular calcification. No evidence of mitral valve stenosis. Trace to mild mitral regurgi tation. Tricuspid Valve The tricuspid valve is normal in structure. There is no tricuspid valve stenosis. Trace tricuspid reg urgitation. Pulmonic Valve The pulmonary valve is normal in structure. There is no pulmonic valvular stenosis. Trace pulmonic re gurgitation. Great Vessels The aortic root is normal in size. The ascending aorta is mildly dilated. IVC is normal in size and c ollapses >50% with inspiration. Pericardium There is no pericardial effusion. 2D Dimensions IVSD d PLAX 1.01 cm M: 0.6-1.2 LV Vol A2C d MOD 139.3 mL LVPW d PLAX 1.04 cm M: 0.6 - 1.2 LV Vol A4C d MOD 125.1 mL LVID d PLAX 5.70 cm M: 4.2 - 5.8 LA vol/ BSA A2C s A-L 26.1 mL/m2 LVDs 3.70 cm M: 2.5 - 4.0 LA vol/ BSA A4C s A-L 26.7 mL/m2 Ao Root d 3.55 cm M: 3.1 - 3.7 LA Vol/ BSA Biplane s A-L 27.7 mL/m2 RA Area A4C 16.34 cm2 LA Area A4C s MOD 19.38 cm2 RA Vol/ BSA A4C s A-L 22.2 mL/m2 LA Area A2C s MOD 18.25 cm2 Ao Asc Diam d 3.80 cm M: 2.6 - 3.4 LV EF A4C MOD 60.0 % LV EF Teichholz 63.5 % LV EF A2C MOD 59.1 % LVEF (Lozoya's) 57.45 % M: 52 - 72 LV EF Biplane MOD 57.4 % LV Volume 100.55 mL M: 62 - 150 SV 78.29 mL LV Volume Index 47.88 mL/m2 M: 34 - 74 SV Index 37.24 mL/m2 LV Vol Biplane MOD 136.3 mL FS 34.95 % M-Mode TAPSE 1.87 cm (M/F) >1.7 LV Diastology MV E' medial 0.070 (>0.07 m/s) E/A Ratio 0.9 LV E/e MED 7.30 (<14) MV E Vmax 0.51 (0.4-1.3 m/s) MV E' lateral 0.117 (>0.1 m/s) MV A Vmax 0.60 (0.4-1.3 m/s) LV E/e LAT 4.35 (<14) MV E/A Ratio 0.81 MV E/E' medial 7.31 MV E/E' lateral 4.39 Aortic Valve LVOT Area 3.13 cm2 AoV Area Vmax 2.02 cm2 LVOT Vmax 0.76 m/s AoV Area/ BSA (Vmax) 0.96 cm2/m2 LVOT Mean Hola. 0.57 m/s JACKIE Mean Hola. 1.86 cm2 LVOT Peak Grad 2.3 mmHg JACKIE Mean Hola. Index 0.89 cm2/m2 LVOT Mean Grad 1.4 mmHg AR DT 2145 msec LVOT VTI 0.158 m AR PHT 622 msec LVOT Diam s 1.95 cm AoV Vmax 1.17 m/s Velocity Ratio 0.64 AoV Mean Hola. 0.96 m/s AoV Peak Grad 5.5 mmHg LVOT SV 49.48 mL AoV Mean Grad 3.8 mmHg AoV VTI 0.265 m AoV Area VTI 1.86 cm2 AoV Area/ BSA (VTI) 0.89 cm/m2 Mitral Valve MV DT 431 (160-240 msec) MV PHT 125 msec MV Area PHT 1.76 cm2 MV VTI 0.312 m MV Area VTI 1.59 (4.0-6.0 cm2) Pulmonary Valve PV Vmax 1.96 (0.5-1.5 m/s) RVOT Peak Gr. 0.77 mmHg PV Peak Grad 15.3 mmHg RVOT Mean Gr. 0.45 mmHg PV Mean Grad 8.0 mmHg RVOT VTI 0.080 m PV VTI 0.420 m RVOT Vmax 0.44 m/s Tricuspid Valve TR Peak Grad 21.4 mmHg TR Vmax 2.31 m/s RA Pressure 3.00 mmHg RVSP (TR) 24.4 mmHg
== END 2021-08-25 01:52 ==
PROVIDERS: PCP Internal Medicine; Visit Provider Internal Medicine
DX: I42.9 Cardiomyopathy, unspecified (principal); E78.5 Hyperlipidemia, unspecified; I08.0 Rheumatic disorders of both mitral and aortic valves; I77.810 Thoracic aortic ectasia
CPT/HCPCS: 93306

== ENCOUNTER 2022-07-10 14:02 | Outpatient (REF) | payer MEDICARE, BC, SELFPAY ==
[2022-07-10 15:18] LABS: Calculated LDL 163 mg/dL (<100); Cholesterol 239 mg/dL (<200); Glucose 104 mg/dL (74-106); HDL Cholesterol 63 mg/dL (40-60); Triglyceride 66 mg/dL (<150)
== END 2022-07-10 14:03 | disposition home or self-care (01) ==
LOC: NCHCN 14:02
PROVIDERS: PCP Internal Medicine; Visit Provider Internal Medicine
DX: E78.5 Hyperlipidemia, unspecified (principal); Z00.00 Encounter for general adult medical examination without abnormal findings
CPT/HCPCS: 80061; 82947

== ENCOUNTER 2022-08-01 17:54 | Outpatient (REF) | payer MEDICARE, BC, SELFPAY ==
[2022-08-01 21:25] LABS: Absolute Basophil Count 0.03 10^3/uL (0.0-0.2); Absolute Eosinophil Count 0.06 10^3/uL (0.0-0.7); Absolute Lymphocyte Count 1.47 10^3/uL (1.2-3.4); Absolute Monocyte Count 0.42 10^3/uL (0.1-0.8); Absolute Neutrophil Count 2.91 10^3/uL (1.2-6.7); Basophils % 0.6; Eosinophils % 1.2; HCT 43.3 % (40.0-50.0); HGB 14.8 g/dL (13.5-17.5); Lymphocytes % 30.1; MCH 31.3 pg (27.0-33.0); MCHC 34.2 % (32.0-36.0); MCV 92 fL (80-95); Monocytes % 8.6; Neutrophils % 59.5; Platelet Count 244 10^3/uL (130-400); RBC 4.73 10^6/uL (4.36-5.78); RDW 13.4 % (11.8-14.1); RDW-SD 45.8 fL; WBC 4.89 10^3/uL (4.4-10.8)
[2022-08-01 21:40] LABS: Anion Gap 8.5 mmol/L (3-11); BUN 21 mg/dL (7-18); CO2 26.5 mmol/L (21.0-32.0); CREATININE 0.9 mg/dL (0.70-1.30); Calcium 9.2 mg/dL (8.5-10.1); Chloride 106 mmol/L (98-107); Estimated GFR 94.19 (mL/min/1.73m2); Glucose 95 mg/dL (74-106); Potassium 4.2 mmol/L (3.5-5.1); Sodium 141 mmol/L (136-145)
[2022-08-02 20:27] LABS: PSA, Screening 0.6 ng/mL (<=4.5)
== END 2022-08-01 17:55 | disposition home or self-care (01) ==
LOC: NCHCN 17:54
PROVIDERS: PCP Internal Medicine; Visit Provider Internal Medicine
DX: R53.83 Other fatigue (principal); R06.09 Other forms of dyspnea; Z12.5 Encounter for screening for malignant neoplasm of prostate
CPT/HCPCS: 80048; 84153; 85025

== ENCOUNTER 2022-09-26 00:51 | Outpatient (CLI) | payer MEDICARE, BC, SELFPAY ==
--- NOTE | 2022-09-26 07:33 | DI.US_ITS ---
APPROVED REPORT EXAM: Comprehensive 2D, Doppler, and color-flow Echocardiogram Patient Location: Out-Patient [employer] T[employer] Grenade: Shell Medina RDCS (AE) Indications: Aortic regurgitation, Cardiomyopathy, Fatigue,Dyspnea Other Information Study Quality: Adequate Conclusion Normal left ventricular wall thickness and chamber size. Estimated ejection fraction is 60%. Wall m otion is normal Normal right ventricular size and systolic function Both atria are normal in size Aortic valve is mildly sclerotic and trileaflet with mild to moderate regurgitation Normal mitral valve with mild regurgitation Estimated right ventricular systolic pressure is 23 mmHg Mildly dilated ascending aorta measuring 3.86 cm Wall motion Left Ventricle The left ventricle is normal size. The left ventricular systolic function is normal. The left ventric ular ejection fraction is within the normal range. There is normal left ventricular wall thickness. T here is normal LV segmental wall motion. There is no ventricular septal defect visualized. LVEF is 60 %. Right Ventricle The right ventricle is normal size. The right ventricular systolic function is normal. The RVSP is 22 .8 mmHg. Atria The left atrium size is normal. The right atrium size is normal. The interatrial septum is intact wit h no evidence for an atrial septal defect. Aortic Valve The Aortic valve is mildly sclerotic. Aortic valve is trileaflet. There is no aortic valvular stenosi s. Mild to moderate aortic regurgitation. Mitral Valve The mitral valve is normal in structure. No evidence of mitral valve stenosis. Mild mitral regurgitat ion. Tricuspid Valve The tricuspid valve is normal in structure. There is no tricuspid valve stenosis. Trace tricuspid reg urgitation. Pulmonic Valve The pulmonary valve is normal in structure. There is no pulmonic valvular stenosis. Trace pulmonic re gurgitation. Great Vessels The aortic root is normal in size. The ascending aorta is mildly dilated. Aortic arch is normal in ca liber. IVC is normal in size and collapses >50% with inspiration. Pericardium There is no pericardial effusion. 2D Dimensions IVSD d PLAX 0.93 cm M: 0.6-1.2 LV Vol A2C d MOD 124.6 mL LVPW d PLAX 0.93 cm M: 0.6 - 1.2 LV Vol A4C d MOD 127.4 mL LVID d PLAX 5.24 cm M: 4.2 - 5.8 LA vol/ BSA A2C s A-L 27.9 mL/m2 LVDs 3.50 cm M: 2.5 - 4.0 LA vol/ BSA A4C s A-L 21.4 mL/m2 Ao Root d 3.54 cm M: 3.1 - 3.7 LA Vol/ BSA Biplane s A-L 26.7 mL/m2 RA Area A4C 16.18 cm2 LA Area A4C s MOD 17.17 cm2 RA Vol/ BSA A4C s A-L 25.0 mL/m2 LA Area A2C s MOD 17.94 cm2 Ao Asc Diam d 3.86 cm M: 2.6 - 3.4 LV EF A4C MOD 60.5 % LV EF Teichholz 61.0 % LV EF A2C MOD 58.6 % LVEF (Lozoya's) 57.37 % M: 52 - 72 LV EF Biplane MOD 57.4 % LV Volume 93.83 mL M: 62 - 150 SV 72.96 mL LV Volume Index 44.68 mL/m2 M: 34 - 74 SV Index 34.71 mL/m2 LV Vol Biplane MOD 127.2 mL FS 32.85 % M-Mode TAPSE 1.96 cm (M/F) >1.7 LV Diastology MV E' medial 0.055 (>0.07 m/s) E/A Ratio 0.6 LV E/e MED 5.95 (<14) MV E Vmax 0.33 (0.4-1.3 m/s) MV E' lateral 0.057 (>0.1 m/s) MV A Vmax 0.60 (0.4-1.3 m/s) LV E/e LAT 5.70 (<14) MV E/A Ratio 0.51 MV E/E' medial 5.96 MV E/E' lateral 5.70 Aortic Valve LVOT Area 3.84 cm2 AoV Area Vmax 3.60 cm2 LVOT Vmax 1.12 m/s AoV Area/ BSA (Vmax) 1.71 cm2/m2 LVOT Mean Hola. 0.75 m/s JACKIE Mean Hola. 3.21 cm2 LVOT Peak Grad 5.0 mmHg JACKIE Mean Hola. Index 1.53 cm2/m2 LVOT Mean Grad 2.6 mmHg AR DT 2112 msec LVOT VTI 0.253 m AR PHT 612 msec LVOT Diam s 2.20 cm AoV Vmax 1.19 m/s Velocity Ratio 0.94 AoV Mean Hola. 0.89 m/s AoV Peak Grad 5.7 mmHg LVOT SV 97.33 mL AoV Mean Grad 3.4 mmHg AoV VTI 0.267 m AoV Area VTI 3.65 cm2 AoV Area/ BSA (VTI) 1.74 cm/m2 Mitral Valve MV DT 261 (160-240 msec) MV PHT 76 msec MV Area PHT 2.91 cm2 MV VTI 0.236 m MV Area VTI 4.13 (4.0-6.0 cm2) Pulmonary Valve PV Vmax 1.97 (0.5-1.5 m/s) RVOT Peak Gr. 0.68 mmHg PV Peak Grad 15.6 mmHg RVOT Mean Gr. 0.35 mmHg PV Mean Grad 9.4 mmHg RVOT VTI 0.081 m PV VTI 0.395 m RVOT Vmax 0.41 m/s Tricuspid Valve TR Peak Grad 19.7 mmHg TR Vmax 2.22 m/s RA Pressure 3.00 mmHg RVSP (TR) 22.8 mmHg
== END 2022-09-26 01:11 ==
PROVIDERS: PCP Internal Medicine; Visit Provider Internal Medicine
DX: I35.1 Nonrheumatic aortic (valve) insufficiency (principal)
CPT/HCPCS: 93306

== ENCOUNTER 2023-01-24 13:54 | Outpatient (REF) | payer MEDICARE, BC, SELFPAY ==
[2023-01-24 15:01] LABS: Calculated LDL 156 mg/dL (<100); Cholesterol 225 mg/dL (<200); HDL Cholesterol 61 mg/dL (40-60); Triglyceride 40 mg/dL (<150)
== END 2023-01-24 13:55 | disposition home or self-care (01) ==
LOC: NCHCN 13:54
PROVIDERS: PCP Internal Medicine; Visit Provider Internal Medicine
DX: E78.5 Hyperlipidemia, unspecified (principal)
CPT/HCPCS: 80061

== ENCOUNTER 2023-07-09 16:17 | Emergency (ER) | payer MEDICARE, BC, SELFPAY ==
[2023-07-09 16:25] VITALS: BP 152/89; PULSE 77; RESP 18; TEMP 36.8
--- NOTE | 2023-07-09 16:34 | ED.GENADUL_ITS ---
Discharge Plan Disposition Patient Disposition: Home Discharge Details Clinical Impression: Fall down stairs, Scalp laceration, Laceration of left little finger without damage to nail Primary Care Provider: Mariel Mendoza ED Provider: Nicola Guzman Home Meds and New Rx's Prescriptions: Continued tamsulosin [Flomax] 0.4 mg capsule 0.4 mg PO DAILY IVIG See Rx Instructions IV INFUSION Rx Instructions: 1 IV infusion q. 4-5 weeks intravenously infusion; Pt gets infusions every 4- 5 weeks. ibuprofen 800 mg Tablet 800 mg PO TID atorvastatin 20 mg tablet 20 mg PO DAILY Patient Comments: TAKE 1 TABLET BY MOUTH EVERY NIGHT Discharge Instructions Instructions: Fall Prevention for Older Adults (ED), Finger Laceration (ED), Scalp Contusion in Adults (ED) Additional Instructions: You were seen in the emergency department for your mechanical fall on her stairs at home, you suffered a significant head injury but have no alteration in neurological status, we discussed CAT scan but you have had no deterioration of mental status in the past almost 4 hours-ID refused CT scan. Your scalp laceration was repaired by 8 sutures, these will need to be removed in 7 to 10 days please return to the ED for this. Your left pinky finger laceration/abrasions were repaired by Steri-Strips and extras were given to you to maintain wound care at home of these. Please watch for any increasing pain or redness from either area or any fever and return for signs of infection or any alteration from mental status Referrals: Mariel Mendoza [Primary Care Provider] - Medical Decision Making This dictation utilizes [id number] dictation software and may contain unedited grammatical errors. 68 y/o M presents to ED today with a chief complaint of fall down a few stairs to a landing where he struck his head without LOC, and has minor abrasion to R pinky - has scalp laceration- no nausea/vomiting post-event, per he is acting himself without repetitive questioning, reporting no concussive symptoms- states his fall was likely due to his chronic pedal neuropathy and losing his balance. No anticoagulation, no deterioration in ~3hrs since event by time of laceration repair. Patients' medical history: myasthenia gravis, hx rheumatic fever. Family and social history: noncontributory. Pertinent exam findings / vital signs include HEAD: Normocephalic, normal hair distribution for gender/age- receding hairline, has 6cm superficial linear laceration extending from crown towards R parietal area, 6cm, no active bleedi ng, linear and superficial, no crepitus to skull, not grossly contaminated, wound edges do not pull apart with manual traction- possible to DermaBond, minor scalp hematomas to R forehead - no cervical vertebral tenderness/crepitus/step- offs, painless cervical ROM - L Hand: minor abrasion to L pinky finger DIP, no active bleeding, sensation intact, ROM intact, no crepitus, no suture repair needed. Differential / pathologies of concern include laceration, concussion, unlikely ICH. Diagnostic studies of: -none, discussed CT Head wo Contrast with the patient, but he feels fine- and is not displaying any worrying signs of intracranial pathology. Interventions of: - scalp laceration repair by suture and pinky laceration repair by Steri-strip. ED Course/Assessment/Plan: 68-year-old male suffered a fall down a few stairs to a landing, states no loss of consciousness and has no major concussive symptoms. By the time of discharge she had been here for hours with no deterioration in mental status, I did discuss with him CT of the head but he stated he felt fine and did not think it was necessary. The only criteria for CT would have been mechanism but I think in this case the patient is stable with this prolonged observation time while his lacerations were repaired. His scalp laceration was repaired by 8 sutures of 5-0 Prolene with wound edges approximated very well. This was then covered with a sterile nonstick dressing, I counseled him to wait to shower until tomorrow and to be gentle around the area and use a gentle shampoo like [employer] baby shampoo, his left pinky lacerations were very small and were repaired with Steri-Strips and the patient was provided with extra should he be washing his hands and they remove themselves. I counseled him to return for any signs of infection or alteration in mental status to either area. Patient will return in 7 to 10 days for suture removal. Findings not consistent with ICH, severe concussion, altered mental status, grossly contaminated wound, spinal cord or column injury. Disposition of Fall Down Stairs, Scalp Laceration, Laceration of Left Little Finger without Damage to Nail. Patient verbalized understanding of the plan and return to ED criteria and engaged in shared decision making. Medical Records Medical records reviewed: Yes I reviewed the patient's medical records. HPI General Date/Time Provider Initiated Documentation: 07/09/23 16:23 . HPI Narrative: 68 year-old male presents to ED today by POV/ambulating with his with a chief complaint of fall down 5-6 stairs, head laceration, minor L pinky laceration with onset around 1445- about two hours prior to arrival. Quality described as laceration to top of head toward R parietal, no radiation to LOC, nausea/vomiting, repetitive questioning, photophobia, visual changes, tinnitus. Severity is described as mild. Palliating factors include direct pressure with resolution of bleeding. Provoking factors include patient states he had his hands full, has baseline pedal neuropathy and must've lost his balance. Events leading up to the incident/Associated Symptoms: Patient reports minor hematomas to R forehead area. Patient not anticoagulated. Related Data Home Medications Medication Instructions Recorded Confirmed Ivig See Rx Instructions IV INFUSION 05/29/16 07/09/23 tamsulosin 0.4 mg capsule (Flomax) 0.4 mg PO DAILY 12/12/18 07/09/23 ibuprofen 800 mg tablet 800 mg PO TID 12/31/19 07/09/23 atorvastatin 20 mg tablet 20 mg PO DAILY 07/09/23 07/09/23 Allergies Allergy/AdvReac Type Severity Reaction Status Date / Time flu vaccine Allergy Severe chronic Uncoded 07/16/22 08:39 inflammatory disease General Stated Complaint: Trauma PARISH: 3 Review of Systems All systems reviewed & are unremarkable except as noted in HPI and below [facility] All Active Problems (Updated 07/09/23 @ 18:18 by MIRACLE Batista) Laceration of left little finger without damage to nail (Acute) Scalp laceration (Acute) Fall down stairs (Acute) Tailors bunion (Acute) Pain, foot (Acute) Corns and callosities (Acute) Cardiomyopathy (Acute) Tinnitus of right ear (Acute) Pre-diabetes (Acute) Benign essential tremor (Acute) Hyperlipidemia (Acute) Abscess of bursa, right ankle and foot (Acute) Wound of right ankle (Acute) Encounter for screening colonoscopy (Acute) Osteoarthritis of subtalar joint (Acute) Peroneal tendinitis, right leg (Acute) 12/2019 Postoperative wound infection (Acute) Diverticulosis (Acute) Peyronie's disease (Chronic) 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) BPH (benign prostatic hyperplasia) (Chronic) Ventricular bigeminy (Acute) Medical History (Updated 07/09/23 @ 18:18 by MIRACLE Batista) Myasthenia gravis Pyoderma gangrenosum Peroneal tendon rupture repaired 01/04/20 Hx of eczema Rheumatic fever Family history of prostate cancer History of rheumatic fever Chronic diarrhea Urinary frequency Surgical History S/P colonoscopy 03/06/19 Hx of arthroscopy of left knee Hx of thumb surgery Family History (Updated 07/13/22 @ 21:11 by Dolores Burgos RN) Mother Parkinson's disease Father Prostate cancer Sister Breast cancer Brother Pancreatic cancer Social History (Updated 07/13/22 @ 21:09 by Dolores Burgos RN) Smoking/Tobacco Use Status: Former Tobacco Use Tobacco: How many years used: 25 Smoking risk assessment performed?: Yes Alcohol Intake: current Alcohol Intake frequency: a few times a week Alcohol type: wine Drug use: Never Substance use type: does not use Details: alcohol: t-2, wine. smokeless t-1 Household members: spouse Number of Children: 2 current occupation: Retired Production Maintenance Mechanic Current gender identity: male Do you feel safe at home: Yes Do you feel safe in your relationship?: Yes Exam Narrative Exam Narrative: GENERAL APPEARANCE: Well-nourished, non-toxic, awake and alert, atraumatic, no acute distress. SKIN: Warm, pink, dry, intact, without rashes/lesions/ulcerations. HEAD: Normocephalic, normal hair distribution for gender/age- receding hairline, has 6cm superficial linear laceration extending from crown towards R parietal area, 6cm, no active bleeding, linear and superficial, no crepitus to skull, not grossly contaminated, wound edges do not pull apart with manual traction- possible to DermaBond, minor scalp hematomas to R forehead EYES: Pupils PERRLA, EOMs intact without nystagmus, normal conjunctiva, no exudates on lids/lashes. ENT: Nares patent, no circumoral cyanosis, no facial swelling NECK: Supple, trachea midline, painless cervical ROM. LUNGS/CHEST: Non-labored respirations, normal A/P diameter, symmetrical expansion, no chest wall deformity HEART (CV/PV): Regular rate, L radial pulse 2+, no peripheral edema, no JVD. ABDOMEN: Soft, non-distended, no guarding. MSK: Normal ROM, no swelling/deformity to bilateral UEs or LEs, moving all extremities without weakness, no cyanosis, spine midline without tenderness, normal curvature. L Hand: <0.5cm minor abrasions x2 to L pinky finger DIP, no active bleeding, sensation intact, ROM intact, no crepitus, no suture repair needed NEURO: Mental Status AAOx4 - alert to person, place, time, events No facial droop, no forehead involvement. Motor: No focal weakness - strength 5/5 in bilateral UEs and LEs, proximal and distal, symmetric. Sensory: sensation intact to light touch globally. Gait normal: patient ambulated without ataxia into ED room. PSYCH: euthymic, cooperative, pleasant, appropriate speech Course Vital Signs Vital signs: Vital Signs Temperature 36.8 C 07/09/23 16:25 Pulse 77 07/09/23 16:25 Respiratory Rate 18 07/09/23 16:25 Blood Pressure 152/89 H 07/09/23 16:25 Temperature 36.8 C 07/09/23 16:25 Temperature Source Skin 07/09/23 16:25 Pulse 77 07/09/23 16:25 Respiratory Rate 18 07/09/23 16:25 Respiratory Effort Normal 07/09/23 16:32 Respiratory Depth Normal 07/09/23 16:32 Respiratory Pattern Normal 07/09/23 16:32 Blood Pressure 152/89 H 07/09/23 16:25 Blood Pressure Position Sitting 07/09/23 16:25 Oxygen Delivery Method Room Air 07/09/23 16:25 Oxygen Flow Rate 0 07/09/23 16:25 Pain Level 5 07/09/23 16:25 Procedures Laceration Laceration 1: Site: scalp Side (If applicable): right Size (cm): 6 Description: linear and clean Depth: simple, single layer Local Anesthetic: other anesthetic (LET Gel) Amount of anesthesia used (mL): 6 Pre-repair: wound explored, irrigated extensively and deep structures intact Skin layer closed with: other (Prolene) Size (cm): 5-0 Number of sutures: 8 Technique: simple, interrupted
[2023-07-09] MEDS: Ibuprofen 400 MG TAB PO (17:43)
[2023-07-09] MEDS: Lidocaine/Epinephri/Tetracaine Topical Gel 3 ML TP (17:44)
[2023-07-09] MEDS: Acetaminophen 500 MG TAB 1000 MG PO (17:44)
== END 2023-07-09 18:52 | disposition home or self-care (01) ==
PROVIDERS: Emergency Provider Physician Assistant; PCP Internal Medicine
DX: S01.01XA Laceration without foreign body of scalp, initial encounter (principal); S61.216A Laceration without foreign body of right little finger without damage to nail, initial encounter; W10.9XXA Fall (on) (from) unspecified stairs and steps, initial encounter; Y93.89 Activity, other specified; Y92.008 Other place in unspecified non-institutional (private) residence as the place of occurrence of the external cause; G70.00 Myasthenia gravis without (acute) exacerbation; E78.5 Hyperlipidemia, unspecified; Z79.899 Other long term (current) drug therapy
CPT/HCPCS: 12002; 99283

== ENCOUNTER 2023-07-18 16:37 | Emergency (ER) | payer MEDICARE, BC, SELFPAY ==
[2023-07-18 16:44] VITALS: BP 140/87; PULSE 61; RESP 16; TEMP 36.5; O2SAT 97
--- NOTE | 2023-07-18 16:50 | W.ED.GENAD ---
Discharge Plan Disposition Patient Disposition: Home Condition: Good Discharge Details Chief Complaint: [facility]Medical Clinical Impression: Visit for suture removal Primary Care Provider: Mariel Mendoza ED Provider: Nicola Miller Home Meds and New Rx's Prescriptions: No Action tamsulosin [Flomax] 0.4 mg capsule 0.4 mg PO DAILY IVIG See Rx Instructions IV INFUSION Rx Instructions: 1 IV infusion q. 4-5 weeks intravenously infusion; Pt gets infusions every 4-5 weeks. ibuprofen 800 mg Tablet 800 mg PO TID atorvastatin 20 mg tablet 20 mg PO DAILY Patient Comments: TAKE 1 TABLET BY MOUTH EVERY NIGHT Discharge Instructions Additional Instructions: At this time your scalp laceration has healed very well. All sutures were removed. You may resume normal daily activities. In regards to the small lesion on your left small finger, please gently wash with soap and water daily. Apply triple antibiotic ointment on it daily. Continue to monitor closely for healing. If you notice any worsening of your symptoms, or any new symptoms such as vomiting, diarrhea, fever, chills, shortness of breath, chest pain, numbness, weakness, or fainting , please return immediately to the emergency department for reevaluation. Please follow up with your primary care provider as soon as possible for reassessment and reevaluation. As always, it was a pleasure participating in your medical care today. Referrals: Mariel Mendoza [Primary Care Provider] - Medical Decision Making 68-year-old male presents today for suture removal. Patient had a laceration on his scalp and a small abrasion on his left small finger. 8 sutures were placed, it is been 9 days since initial suturing. He returns for removal. No complaints otherwise. 8 simple interrupted sutures were removed. No complications. Good healing, no dehiscence. Small ulcer is noted in the pinky. This appears to be healing well with good granulation tissue, and no evidence of redness erythema drainage or discharge otherwise. Recommend regular wound cleaning for this area as well as potential triple antibiotic ointment. Discussed red flags for which to return. I have extensively reviewed the treatment plan and discharge instructions with the patient. I have addressed all patient concerns at this time. The patient was made aware of what symptoms to monitor for that would warrant a return to the emergency department. Discussed the plan with the patient, they demonstrate verbal understanding and agreement with our assessment and plan at this time. The documentation in this chart was dictated using [employer] dictation software. Please excuse any dictation errors. HPI General Date/Time Provider Initiated Documentation: 07/18/23 16:40. HPI Narrative: 68-year-old male presents today for suture removal. Patient had a laceration on his scalp and a small abrasion on his left small finger. 8 sutures were placed, it is been 9 days since initial suturing. He returns for removal. No complaints otherwise. Related Data Home Medications Medication Instructions Recorded Confirmed Ivig See Rx Instructions IV INFUSION 05/29/16 07/09/23 tamsulosin 0.4 mg capsule (Flomax) 0.4 mg PO DAILY 12/12/18 07/09/23 ibuprofen 800 mg tablet 800 mg PO TID 12/31/19 07/09/23 atorvastatin 20 mg tablet 20 mg PO DAILY 07/09/23 07/09/23 Allergies Allergy/AdvReac Type Severity Reaction Status Date / Time flu vaccine Allergy Severe chronic Uncoded 07/16/22 08:39 inflammatory disease General Stated Complaint: [facility] [place]ISH: 4 Review of Systems All systems reviewed & are unremarkable except as noted in HPI and below PFSH All Active Problems (Updated 07/18/23 @ 16:51 by Nicola Miller DO) Visit for suture removal (Acute) Laceration of left little finger without damage to nail (Acute) Scalp laceration (Acute) Fall down stairs (Acute) Tailors bunion (Acute) Pain, foot (Acute) Corns and callosities (Acute) Cardiomyopathy (Acute) Tinnitus of right ear (Acute) Pre-diabetes (Acute) Benign essential tremor (Acute) Hyperlipidemia (Acute) Abscess of bursa, right ankle and foot (Acute) Wound of right ankle (Acute) Encounter for screening colonoscopy (Acute) Osteoarthritis of subtalar joint (Acute) Peroneal tendinitis, right leg (Acute) 12/2019 Postoperative wound infection (Acute) Diverticulosis (Acute) Peyronie's disease (Chronic) 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) BPH (benign prostatic hyperplasia) (Chronic) Ventricular bigeminy (Acute) Medical History (Updated 07/18/23 @ 16:51 by Nicola Miller DO) Myasthenia gravis Pyoderma gangrenosum Peroneal tendon rupture repaired 01/04/20 Hx of eczema Rheumatic fever Family history of prostate cancer History of rheumatic fever Chronic diarrhea Urinary frequency Surgical History S/P colonoscopy 03/06/19 Hx of arthroscopy of left knee Hx of thumb surgery Family History (Updated 07/13/22 @ 21:11 by Dolores Burgos RN) Mother Parkinson's disease Father Prostate cancer Sister Breast cancer Brother Pancreatic cancer Social History (Updated 07/13/22 @ 21:09 by Dolores Burgos RN) Smoking/Tobacco Use Status: Former Tobacco Use Tobacco: How many years used: 25 Smoking risk assessment performed?: Yes Alcohol Intake: current Alcohol Intake frequency: a few times a week Alcohol type: wine Drug use: Never Substance use type: does not use Details: alcohol: t-2, wine. smokeless t-1 Household members: spouse Number of Children: 2 current occupation: Retired Interventional Radiology Tech Current gender identity: male Do you feel safe at home: Yes Do you feel safe in your relationship?: Yes Exam Narrative Exam Narrative: 1.Const: Well-nourished, Well-developed, appearing stated age 2.Eyes: PERRL, no conjunctival injection, and symmetrical lids. 3.ENT: Atraumatic external nose and ears. Moist MM. Neck: Symmetric, trachea midline, No thyromegaly. 4.CVS: +S1/S2, No murmurs or gallops. Peripheral pulses 2+ and equal in all extremities. Brisk capillary refill in all extremities. 5.RESP: Unlabored respiratory effort. Clear to auscultation bilaterally. No wheezes rales or rhonchi 6.GI: Soft, Nontender/Nondistended, No hepatosplenomegaly. No guarding or rebound. 7.MSK: Normocephalic/Atraumatic, Extremities w/o deformity or ttp No cyanosis or clubbing, Normal movement of all extremities 8.Skin: Warm, Dry. No rashes or lesions. Scalp demonstrates excellent wound healing for the scalp, no signs of dehiscence. Small finger on the left hand demonstrates very small ulceration near the tip. No bleeding. No redness. Good granulation tissue is noted. Appears to be healing well. 9.Neuro: metalsmith II-XII grossly intact. Sensation grossly intact, no focal neurologic deficits. 10.Psych: (AAO) x3. Appropriate mood and affect Course Vital Signs Vital signs: Vital Signs Temperature 36.5 C 07/18/23 16:44 Pulse 61 07/18/23 16:44 Respiratory Rate 16 07/18/23 16:44 Blood Pressure 140/87 07/18/23 16:44 Pulse Oximetry 97 07/18/23 16:44 Temperature 36.5 C 07/18/23 16:44 Pulse 61 07/18/23 16:44 Respiratory Rate 16 07/18/23 16:44 Respiratory Effort Normal 07/18/23 16:47 Blood Pressure 140/87 07/18/23 16:44 Pulse Oximetry 97 07/18/23 16:44 Oxygen Delivery Method Room Air 07/18/23 16:44 Oxygen Flow Rate 0 07/18/23 16:44
--- NOTE | 2023-07-18 16:50 | NUR.NOTE ---
Addendum entered by Buddy Koenig RN 07/18/23 16:54: Small lesion to left small finger also assessed by physician. Instructions provided to patient re care. Original Note: Nursing Note: Eight stitches removed by physician in triage. No complications per MD.
== END 2023-07-18 16:56 | disposition home or self-care (01) ==
PROVIDERS: Emergency Provider Student in an Organized Health Care Education/Training Program; PCP Internal Medicine
DX: Z48.02 Encounter for removal of sutures (principal)

== ENCOUNTER 2023-08-06 15:50 | Outpatient (REF) | payer MEDICARE, BC, SELFPAY ==
[2023-08-06 17:46] LABS: Anion Gap 7.8 mmol/L (3-11); BUN 24 mg/dL (7-18); CO2 27.2 mmol/L (21.0-32.0); Calcium 9.3 mg/dL (8.5-10.1); Calculated LDL 114 mg/dL (<100); Chloride 104 mmol/L (98-107); Cholesterol 191 mg/dL (<200); Estimated GFR 82.49 (mL/min/1.73m2); Glucose 107 mg/dL (74-106); HDL Cholesterol 67 mg/dL (40-60); Potassium 4.2 mmol/L (3.5-5.1); Sodium 139 mmol/L (136-145); Triglyceride 52 mg/dL (<150)
[2023-08-06 18:18] LABS: Hemoglobin A1C 5.7 % (<5.7)
== END 2023-08-06 15:51 | disposition home or self-care (01) ==
LOC: NCHCN 15:50
PROVIDERS: PCP Internal Medicine; Visit Provider Internal Medicine
DX: E78.5 Hyperlipidemia, unspecified (principal); R73.03 Prediabetes
CPT/HCPCS: 80048; 80061; 83036

== ENCOUNTER 2023-09-24 03:10 | Outpatient (RCR) | payer MEDICARE, BC, SELFPAY ==
[2023-09-24 09:00] VITALS: BP 133/82; PULSE 74; RESP 17; TEMP 36.7; O2SAT 94
[2023-09-24] MEDS: Normal Saline Flush 10 ML SYR IVP (09:12)
[2023-09-24 09:40] VITALS: BP 133/80; PULSE 68; RESP 16; TEMP 36.7; O2SAT 94
[2023-09-24] MEDS: IMMU GLOBULIN,GAMMA (IGG) 200 ML IVPB ×4 (09:48→11:55)
[2023-09-24 09:55] VITALS: BP 133/80; PULSE 58; RESP 16; TEMP 36.9; O2SAT 95
[2023-09-24 10:10] VITALS: BP 135/82; PULSE 61; RESP 16; TEMP 36.7; O2SAT 96
[2023-09-24 10:42] VITALS: BP 127/79; PULSE 55; RESP 16; TEMP 36.7; O2SAT 96
[2023-09-24 11:50] VITALS: BP 133/85; PULSE 48; RESP 17; TEMP 36.7; O2SAT 96
== END 2023-09-26 23:59 | disposition home or self-care (01) ==
LOC: INF 03:10
PROVIDERS: PCP Internal Medicine; Visit Provider Nurse Practitioner Family
DX: G70.00 Myasthenia gravis without (acute) exacerbation (principal)
CPT/HCPCS: 96365; 96366; J1569

== ENCOUNTER 2023-10-23 04:37 | Outpatient (RCR) | payer MEDICARE, BC, SELFPAY ==
[2023-09-27 00:11] VITALS: BP 133/85; PULSE 48; RESP 17; TEMP 36.7
[2023-10-23] VITALS (9 sets, daily range): BP systolic 104–142; BP diastolic 61–85; PULSE 51–70; RESP 17–18; TEMP 36.3–37; O2SAT 95–98
[2023-10-23] MEDS: IMMU GLOBULIN,GAMMA (IGG) 200 ML IVPB ×4 (09:48→12:20)
[2023-10-23] MEDS: Normal Saline Flush 10 ML SYR IVP (09:48)
== END 2023-10-27 23:59 | disposition home or self-care (01) ==
LOC: INF 04:37
PROVIDERS: PCP Internal Medicine; Visit Provider Nurse Practitioner Family
DX: G70.00 Myasthenia gravis without (acute) exacerbation (principal)
CPT/HCPCS: 96365; 96366; J1569

== ENCOUNTER 2023-11-20 04:51 | Outpatient (RCR) | payer MEDICARE, BC, SELFPAY ==
[2023-10-28 00:17] VITALS: BP 133/85; PULSE 48; RESP 17; TEMP 36.7
[2023-11-20] VITALS (9 sets, daily range): BP systolic 108–130; BP diastolic 66–81; PULSE 54–71; RESP 16; TEMP 35.4–36.4; O2SAT 96–99
[2023-11-20] MEDS: Normal Saline Flush 10 ML SYR IVP (09:14)
[2023-11-20] MEDS: IMMU GLOBULIN,GAMMA (IGG) 200 ML IVPB ×4 (09:58→12:16)
== END 2023-11-26 23:59 | disposition home or self-care (01) ==
LOC: INF 04:51
PROVIDERS: PCP Internal Medicine; Visit Provider Nurse Practitioner Family
DX: G70.00 Myasthenia gravis without (acute) exacerbation (principal)
CPT/HCPCS: 96365; 96366; J1569

== ENCOUNTER 2023-12-19 04:57 | Outpatient (RCR) | payer MEDICARE, BC, SELFPAY ==
[2023-11-27 00:08] VITALS: BP 133/85; PULSE 48; RESP 17; TEMP 36.7
[2023-12-19] VITALS (7 sets, daily range): BP systolic 117–136; BP diastolic 69–80; PULSE 62–70; RESP 16; TEMP 36.3–36.8; O2SAT 70–98
[2023-12-19] MEDS: IMMU GLOBULIN,GAMMA (IGG) 200 ML IVPB ×4 (09:02→11:35)
[2023-12-19] MEDS: Normal Saline Flush 10 ML SYR IVP (09:02)
== END 2023-12-27 23:59 | disposition home or self-care (01) ==
LOC: INF 04:57
PROVIDERS: PCP Internal Medicine; Visit Provider Nurse Practitioner Family
DX: G61.81 Chronic inflammatory demyelinating polyneuritis (principal)
CPT/HCPCS: 96365; 96366; J1569

== ENCOUNTER 2024-01-15 04:36 | Outpatient (RCR) | payer MEDICARE, BC, SELFPAY ==
[2023-12-28 00:20] VITALS: BP 133/85; PULSE 48; RESP 17; TEMP 36.7
[2024-01-15 09:15] VITALS: BP 120/74; PULSE 70; RESP 17; TEMP 36.6; O2SAT 95
[2024-01-15] MEDS: Normal Saline Flush 10 ML SYR IVP (09:28)
[2024-01-15 10:00] VITALS: BP 134/78; PULSE 70; RESP 17; TEMP 36.4; O2SAT 96
[2024-01-15] MEDS: IMMU GLOBULIN,GAMMA (IGG) 200 ML IVPB ×4 (10:03→12:18)
[2024-01-15 10:15] VITALS: BP 130/76; PULSE 63; RESP 14; TEMP 36.6; O2SAT 96
[2024-01-15 12:20] VITALS: BP 144/80; PULSE 65; RESP 16; TEMP 36.7; O2SAT 95
== END 2024-01-26 23:59 | disposition home or self-care (01) ==
LOC: INF 04:36
PROVIDERS: PCP Internal Medicine; Visit Provider Nurse Practitioner Family
DX: G70.00 Myasthenia gravis without (acute) exacerbation (principal)
CPT/HCPCS: 96365; 96366; J1569

== ENCOUNTER 2024-02-12 02:40 | Outpatient (RCR) | payer MEDICARE, BC, SELFPAY ==
[2024-01-27 00:07] VITALS: BP 133/85; PULSE 48; RESP 17; TEMP 36.7
[2024-02-12 09:15] VITALS: BP 105/62; PULSE 58; RESP 18; TEMP 36.5; O2SAT 95
[2024-02-12] MEDS: Normal Saline Flush 10 ML SYR IVP (09:18)
[2024-02-12 09:50] VITALS: BP 123/77; PULSE 60; RESP 17; TEMP 36.5; O2SAT 96
[2024-02-12] MEDS: IMMU GLOBULIN,GAMMA (IGG) 200 ML IVPB (09:55)
[2024-02-12 10:50] VITALS: BP 119/73; PULSE 53; RESP 17; TEMP 36.5; O2SAT 96
[2024-02-12 12:50] VITALS: BP 120/70; PULSE 58; RESP 18; TEMP 36.5; O2SAT 96
== END 2024-02-26 23:59 | disposition home or self-care (01) ==
LOC: INF 02:40
PROVIDERS: PCP Internal Medicine; Visit Provider Nurse Practitioner Family
DX: G70.00 Myasthenia gravis without (acute) exacerbation (principal)
CPT/HCPCS: 96365; 96366; J1569

== ENCOUNTER 2024-03-11 02:38 | Outpatient (RCR) | payer MEDICARE, BC, SELFPAY ==
[2024-02-27 00:26] VITALS: BP 133/85; PULSE 48; RESP 17; TEMP 36.7
[2024-03-11] VITALS (7 sets, daily range): BP systolic 114–145; BP diastolic 57–77; PULSE 52–65; RESP 16; TEMP 35.6–36.4; O2SAT 96–99
[2024-03-11] MEDS: Normal Saline Flush 10 ML SYR IVP (09:20)
[2024-03-11] MEDS: IMMU GLOBULIN,GAMMA (IGG) 200 ML IVPB (10:08)
== END 2024-03-28 23:59 | disposition home or self-care (01) ==
LOC: INF 02:38
PROVIDERS: PCP Internal Medicine; Visit Provider Nurse Practitioner Family
DX: G70.00 Myasthenia gravis without (acute) exacerbation (principal)
CPT/HCPCS: 96365; 96366; J1569

== ENCOUNTER 2024-04-07 01:43 | Outpatient (RCR) | payer MEDICARE, BC, SELFPAY ==
[2024-03-29 00:28] VITALS: BP 133/85; PULSE 48; RESP 17; TEMP 36.7
[2024-04-07] VITALS (9 sets, daily range): BP systolic 96–137; BP diastolic 61–82; PULSE 56–74; RESP 17; TEMP 35.8–36.8; O2SAT 95–99
[2024-04-07] MEDS: Normal Saline Flush 10 ML SYR IVP (07:47)
[2024-04-07] MEDS: IMMU GLOBULIN,GAMMA (IGG) 200 ML IVPB (10:33)
== END 2024-04-27 23:59 | disposition home or self-care (01) ==
LOC: INF 01:43
PROVIDERS: PCP Internal Medicine; Visit Provider Nurse Practitioner Family
DX: G70.00 Myasthenia gravis without (acute) exacerbation (principal)
CPT/HCPCS: 96365; 96366; J1569

== ENCOUNTER 2024-05-06 01:28 | Outpatient (RCR) | payer MEDICARE, BC, SELFPAY ==
[2024-04-28 00:26] VITALS: BP 133/85; PULSE 48; RESP 17; TEMP 36.7
[2024-05-06 09:08] VITALS: BP 103/66; PULSE 80; RESP 17; TEMP 36.6; O2SAT 95
[2024-05-06] MEDS: Normal Saline Flush 10 ML SYR IVP (09:15)
[2024-05-06 09:54] VITALS: BP 150/82; PULSE 74; RESP 18; TEMP 36.6; O2SAT 96
[2024-05-06] MEDS: IMMU GLOBULIN,GAMMA (IGG) 200 ML IVPB (10:04)
[2024-05-06 10:08] VITALS: BP 126/77; PULSE 65; RESP 18; TEMP 36.6; O2SAT 95
[2024-05-06 10:25] VITALS: BP 127/74; PULSE 75; RESP 17; TEMP 36.6; O2SAT 95
[2024-05-06 10:54] VITALS: BP 147/68; PULSE 60; RESP 17; TEMP 36.8; O2SAT 96
[2024-05-06 11:32] VITALS: BP 147/82; PULSE 54; RESP 18; TEMP 36.4; O2SAT 95
== END 2024-05-28 23:59 | disposition home or self-care (01) ==
LOC: INF 01:28
PROVIDERS: PCP Internal Medicine; Visit Provider Nurse Practitioner Family
DX: G70.00 Myasthenia gravis without (acute) exacerbation (principal)
CPT/HCPCS: 96365; 96366; J1569

== ENCOUNTER 2024-06-03 03:03 | Outpatient (RCR) | payer MEDICARE, BC, SELFPAY ==
[2024-05-29 00:33] VITALS: BP 133/85; PULSE 48; RESP 17; TEMP 36.7
[2024-06-03] MEDS: Normal Saline Flush 10 ML SYR IVP (09:30)
[2024-06-03 09:37] VITALS: BP 114/70; PULSE 70; RESP 18; TEMP 37; O2SAT 96
[2024-06-03 10:07] VITALS: BP 109/69; PULSE 70; RESP 18; TEMP 36.7; O2SAT 95
[2024-06-03] MEDS: IMMU GLOBULIN,GAMMA (IGG) 200 ML IVPB (10:13)
[2024-06-03 10:22] VITALS: BP 137/78; PULSE 68; RESP 18; TEMP 37; O2SAT 96
[2024-06-03 10:37] VITALS: BP 116/68; PULSE 62; RESP 16; TEMP 36.4; O2SAT 95
[2024-06-03 11:00] VITALS: BP 158/80; PULSE 73; RESP 18; TEMP 36.6; O2SAT 96
== END 2024-06-27 23:59 | disposition home or self-care (01) ==
LOC: INF 03:03
PROVIDERS: PCP Internal Medicine; Visit Provider Nurse Practitioner Family
DX: G70.00 Myasthenia gravis without (acute) exacerbation (principal); G61.81 Chronic inflammatory demyelinating polyneuritis
CPT/HCPCS: 96365; 96366; J1569

== ENCOUNTER 2024-07-02 02:53 | Outpatient (RCR) | payer MEDICARE, BC, SELFPAY ==
[2024-06-28 00:30] VITALS: BP 133/85; PULSE 48; RESP 17; TEMP 36.7
[2024-07-02 09:20] VITALS: BP 105/69; PULSE 73; RESP 18; TEMP 36.6; O2SAT 94
[2024-07-02] MEDS: IMMU GLOBULIN,GAMMA (IGG) 200 ML IVPB ×2 (09:29→10:54)
[2024-07-02] MEDS: Normal Saline Flush 10 ML SYR IVP (09:29)
[2024-07-02 09:50] VITALS: BP 131/69; PULSE 65; RESP 18; TEMP 36.6; O2SAT 93
[2024-07-02 10:05] VITALS: BP 111/69; PULSE 76; RESP 18; TEMP 36.6; O2SAT 95
[2024-07-02 10:20] VITALS: BP 129/75; PULSE 54; RESP 18; TEMP 36.7; O2SAT 97
[2024-07-02 10:50] VITALS: BP 134/76; PULSE 49; RESP 18; TEMP 36.7; O2SAT 97
== END 2024-07-28 23:59 | disposition home or self-care (01) ==
LOC: INF 02:53
PROVIDERS: PCP Internal Medicine; Visit Provider Nurse Practitioner Family
DX: G70.00 Myasthenia gravis without (acute) exacerbation (principal)
CPT/HCPCS: 96365; 96366; J1569

== ENCOUNTER 2024-08-14 09:28 | Outpatient (REF) | payer MEDICARE, BC, SELFPAY ==
[2024-08-14 14:13] LABS: HCT 43.4 % (40.0-50.0); HGB 14.6 g/dL (13.5-17.5); MCH 32.1 pg (27.0-33.0); MCHC 33.6 % (32.0-36.0); MCV 95 fL (80-95); MPV 11.3 fL (8.0-11.0); Platelet Count 156 10^3/uL (130-400); RBC 4.55 10^6/uL (4.36-5.78); RDW 13.1 % (11.8-14.1); RDW-SD 46.4 fL; WBC 3.92 10^3/uL (4.4-10.8)
[2024-08-14 14:39] LABS: ALT 46 U/L (16-63); AST 46 U/L (15-37); Albumin 3.7 g/dL (3.4-5.0); Alkaline Phosphatase 100 U/L (46-116); Anion Gap 7.4 mmol/L (3-11); BUN 25 mg/dL (7-18); Bilirubin, Total 0.48 mg/dL (0.2-1.0); CO2 26.6 mmol/L (21.0-32.0); Calculated LDL 84 mg/dL (<100); Chloride 108 mmol/L (98-107); Cholesterol 159 mg/dL (<200); Estimated GFR 81.98 (mL/min/1.73m2); Glucose 118 mg/dL (74-106); HDL Cholesterol 63 mg/dL (40-60); Potassium 4.1 mmol/L (3.5-5.1); Sodium 142 mmol/L (136-145); Total Protein 7.3 g/dL (6.4-8.2); Triglyceride 61 mg/dL (<150)
[2024-08-14 14:46] LABS: Hemoglobin A1C 5.7 % (<5.7)
[2024-08-17 09:27] LABS: PSA, Screening 0.5 ng/mL (<=4.5)
== END 2024-08-14 09:29 | disposition home or self-care (01) ==
LOC: NCHCN 09:28
PROVIDERS: PCP Internal Medicine; Visit Provider Internal Medicine
DX: R74.01 Elevation of levels of liver transaminase levels (principal); Z00.00 Encounter for general adult medical examination without abnormal findings
CPT/HCPCS: 80053; 80061; 84153; 85027; 83036

== ENCOUNTER 2024-08-26 03:41 | Outpatient (RCR) | payer MEDICARE, BC, SELFPAY ==
[2024-07-29 00:13] VITALS: BP 133/85; PULSE 48; RESP 17; TEMP 36.7
[2024-07-30 09:13] VITALS: BP 111/72; PULSE 71; RESP 18; TEMP 35.3; O2SAT 95
[2024-07-30] MEDS: IMMU GLOBULIN,GAMMA (IGG) 200 ML IVPB ×2 (09:16→10:43)
[2024-07-30] MEDS: Normal Saline Flush 10 ML SYR IVP (09:16)
[2024-07-30 09:45] VITALS: BP 143/84; PULSE 61; RESP 18; TEMP 35.3; O2SAT 98
[2024-07-30 10:00] VITALS: BP 132/80; PULSE 60; RESP 18; TEMP 35.3; O2SAT 96
[2024-07-30 10:15] VITALS: BP 117/77; PULSE 51; RESP 18; TEMP 35.6; O2SAT 97
[2024-07-30 10:45] VITALS: BP 119/71; PULSE 55; RESP 17; TEMP 35.9; O2SAT 98
[2024-08-26] MEDS: Normal Saline Flush 10 ML SYR IVP (09:17)
[2024-08-26 09:25] VITALS: BP 126/78; PULSE 57; RESP 18; TEMP 36.7; O2SAT 96
[2024-08-26 09:41] VITALS: BP 131/83; PULSE 60; RESP 18; TEMP 36.7; O2SAT 96
[2024-08-26 09:56] VITALS: BP 135/79; PULSE 59; RESP 18; TEMP 36.7; O2SAT 97
[2024-08-26 10:24] VITALS: BP 138/82; PULSE 57; RESP 18; TEMP 36.6; O2SAT 96
== END 2024-08-28 23:59 | disposition home or self-care (01) ==
LOC: INF 03:41
PROVIDERS: PCP Internal Medicine; Visit Provider Nurse Practitioner Family
DX: G70.00 Myasthenia gravis without (acute) exacerbation (principal)
CPT/HCPCS: 96365; 96366; J1569

== ENCOUNTER 2024-09-22 02:22 | Outpatient (RCR) | payer MEDICARE, BC, SELFPAY ==
[2024-09-22] MEDS: Normal Saline Flush 5 ML SYR IVP (09:34)
[2024-09-22 09:42] VITALS: BP 123/72; PULSE 66; RESP 18; TEMP 36.6; O2SAT 95
[2024-09-22 10:11] VITALS: BP 134/81; PULSE 59; RESP 16; TEMP 36.8; O2SAT 95
[2024-09-22 10:28] VITALS: BP 139/82; PULSE 69; RESP 17; TEMP 36.7; O2SAT 96
[2024-09-22 10:58] VITALS: BP 137/83; PULSE 56; RESP 16; TEMP 36.9; O2SAT 94
[2024-09-22 11:30] VITALS: BP 138/86; PULSE 71; RESP 18; TEMP 36.7; O2SAT 97
== END 2024-09-25 23:59 | disposition home or self-care (01) ==
LOC: INF 02:22
PROVIDERS: PCP Internal Medicine; Visit Provider Nurse Practitioner Family
DX: G70.00 Myasthenia gravis without (acute) exacerbation (principal)
CPT/HCPCS: 96365; 96366; J1569

== ENCOUNTER 2024-10-20 01:51 | Outpatient (RCR) | payer MEDICARE, BC, SELFPAY ==
[2024-10-20] MEDS: Normal Saline Flush 5 ML SYR IVP (09:29)
[2024-10-20 09:35] VITALS: BP 113/73; PULSE 76; RESP 17; TEMP 36.8; O2SAT 95
[2024-10-20 09:50] VITALS: BP 109/67; PULSE 61; RESP 17; TEMP 36.8; O2SAT 95
[2024-10-20 10:05] VITALS: BP 114/68; PULSE 60; RESP 17; TEMP 36.8; O2SAT 95
[2024-10-20 10:35] VITALS: BP 122/71; PULSE 60; RESP 17; TEMP 36.9; O2SAT 100
[2024-10-20 11:05] VITALS: BP 130/80; PULSE 52; RESP 17; TEMP 36.5; O2SAT 97
== END 2024-10-26 23:59 | disposition home or self-care (01) ==
LOC: INF 01:51
PROVIDERS: PCP Internal Medicine; Visit Provider Nurse Practitioner Family
DX: G70.00 Myasthenia gravis without (acute) exacerbation (principal)
CPT/HCPCS: 96365; 96366; J1569

== ENCOUNTER 2024-11-17 03:15 | Outpatient (RCR) | payer MEDICARE, BC, SELFPAY ==
[2024-11-17 10:18] VITALS: BP 119/65; PULSE 68; RESP 18; TEMP 36.3; O2SAT 96
[2024-11-17] MEDS: Normal Saline Flush 5 ML SYR IVP (10:24)
[2024-11-17 10:45] VITALS: BP 108/69; PULSE 64; RESP 18; TEMP 36.4; O2SAT 96
[2024-11-17 11:14] VITALS: BP 137/84; PULSE 60; RESP 19; TEMP 36.1; O2SAT 97
[2024-11-17 12:15] VITALS: BP 132/85; PULSE 62; RESP 18; TEMP 36.3; O2SAT 100
== END 2024-11-25 23:59 | disposition home or self-care (01) ==
LOC: INF 03:15
PROVIDERS: PCP Internal Medicine; Visit Provider Nurse Practitioner Family
DX: G70.00 Myasthenia gravis without (acute) exacerbation (principal)
CPT/HCPCS: 96365; 96366; J1569

== ENCOUNTER 2024-12-15 01:59 | Outpatient (RCR) | payer MEDICARE, BC, SELFPAY ==
[2024-12-15 09:18] VITALS: BP 103/70; PULSE 69; RESP 20; TEMP 36.4; O2SAT 94
[2024-12-15] MEDS: Normal Saline Flush 10 ML SYR IVP (09:20)
[2024-12-15 09:40] VITALS: BP 130/75; PULSE 63; RESP 20; TEMP 36.2; O2SAT 96
[2024-12-15 09:55] VITALS: BP 127/73; PULSE 59; RESP 19; TEMP 36.2; O2SAT 95
[2024-12-15 10:36] VITALS: BP 124/69; PULSE 59; RESP 18; TEMP 36.4; O2SAT 96
[2024-12-15 11:06] VITALS: BP 124/73; PULSE 65; RESP 20; TEMP 36.2; O2SAT 97
== END 2024-12-26 23:59 | disposition home or self-care (01) ==
LOC: INF 01:59
PROVIDERS: PCP Internal Medicine; Visit Provider Nurse Practitioner Family
DX: G70.00 Myasthenia gravis without (acute) exacerbation (principal)
CPT/HCPCS: 96365; 96366; J1569

== ENCOUNTER 2025-01-12 03:18 | Outpatient (RCR) | payer MEDICARE, BC, SELFPAY ==
[2025-01-12 09:20] VITALS: BP 129/80; PULSE 71; RESP 20; TEMP 36.3; O2SAT 94
[2025-01-12 09:45] VITALS: BP 135/80; PULSE 65; RESP 20; TEMP 36.3; O2SAT 95
[2025-01-12 10:00] VITALS: BP 131/80; PULSE 71; RESP 20; TEMP 36.3; O2SAT 96
[2025-01-12 10:30] VITALS: BP 147/87; PULSE 62; RESP 20; TEMP 36.4; O2SAT 97
[2025-01-12 11:02] VITALS: BP 130/70; PULSE 55; RESP 20; TEMP 36.6; O2SAT 97
[2025-01-12] MEDS: Normal Saline Flush 10 ML SYR IVP (11:46)
== END 2025-01-25 23:59 | disposition home or self-care (01) ==
LOC: INF 03:18
PROVIDERS: PCP Internal Medicine; Visit Provider Nurse Practitioner Family
DX: G70.00 Myasthenia gravis without (acute) exacerbation (principal)
CPT/HCPCS: 96365; 96366; J1569

== ENCOUNTER 2025-02-09 03:29 | Outpatient (RCR) | payer MEDICARE, BC, SELFPAY ==
[2025-02-09 09:26] VITALS: BP 127/76; PULSE 58; RESP 20; TEMP 36.6; O2SAT 98
[2025-02-09 09:49] VITALS: BP 125/77; PULSE 64; RESP 20; TEMP 36.5; O2SAT 96
[2025-02-09 09:57] VITALS: BP 132/80; PULSE 65; RESP 20; TEMP 36.7; O2SAT 96
[2025-02-09 10:12] VITALS: BP 134/75; PULSE 68; RESP 18; TEMP 37.2; O2SAT 96
[2025-02-09] MEDS: IMMUNE GLOBULIN,GAMMA(IGG) 30 GM/300 ML BTL IVPB (10:27)
[2025-02-09 10:40] VITALS: BP 133/79; PULSE 60; RESP 18; TEMP 36.5; O2SAT 95
[2025-02-09 11:12] VITALS: BP 138/66; PULSE 61; RESP 19; TEMP 37; O2SAT 96
[2025-02-09] MEDS: Normal Saline Flush 10 ML SYR IVP (11:31)
== END 2025-02-25 23:59 | disposition home or self-care (01) ==
LOC: INF 03:29
PROVIDERS: PCP Internal Medicine; Visit Provider Nurse Practitioner Family
DX: G70.00 Myasthenia gravis without (acute) exacerbation (principal)
CPT/HCPCS: 96365; 96366; J1569

== ENCOUNTER 2025-03-09 02:12 | Outpatient (CLI) | payer MEDICARE, BC, SELFPAY ==
[2025-03-09 09:18] VITALS: BP 109/68; PULSE 78; RESP 20; TEMP 36.2; O2SAT 94
[2025-03-09] MEDS: Normal Saline Flush 10 ML SYR IVP (09:49)
[2025-03-09 10:13] VITALS: BP 117/73; PULSE 60; RESP 20; TEMP 36.4; O2SAT 95
[2025-03-09 10:26] VITALS: BP 124/73; PULSE 60; RESP 20; TEMP 36.2; O2SAT 96
[2025-03-09 10:43] VITALS: BP 124/74; PULSE 57; RESP 20; TEMP 36.2; O2SAT 96
[2025-03-09 11:00] VITALS: BP 134/80; PULSE 61; RESP 20; TEMP 36.3; O2SAT 96
== END 2025-03-09 02:13 | disposition home or self-care (01) ==
LOC: INF 02:13
PROVIDERS: PCP Internal Medicine; Visit Provider Internal Medicine
DX: G70.00 Myasthenia gravis without (acute) exacerbation (principal)
CPT/HCPCS: 96365; 96366; J1569

== ENCOUNTER 2025-04-06 02:34 | Outpatient (CLI) | payer MEDICARE, BC, SELFPAY ==
[2025-04-06] VITALS (7 sets, daily range): BP systolic 128–154; BP diastolic 72–86; PULSE 52–82; RESP 17; TEMP 35.6–36.4; O2SAT 95–98
[2025-04-06] MEDS: IMMUNE GLOBULIN,GAMMA(IGG) 30 GM/300 ML BTL IVPB ×2 (09:26→11:09)
[2025-04-06] MEDS: Normal Saline Flush 10 ML SYR IVP (09:26)
== END 2025-04-06 02:35 | disposition home or self-care (01) ==
LOC: INF 02:34
PROVIDERS: PCP Internal Medicine; Visit Provider Nurse Practitioner Family
DX: G70.00 Myasthenia gravis without (acute) exacerbation (principal); G61.81 Chronic inflammatory demyelinating polyneuritis
CPT/HCPCS: 96365; 96366; J1569

== ENCOUNTER 2025-05-04 03:04 | Outpatient (CLI) | payer MEDICARE, BC, SELFPAY ==
[2025-05-04 09:32] VITALS: BP 119/73; PULSE 76; RESP 18; TEMP 36.2; O2SAT 96
[2025-05-04] MEDS: IMMUNE GLOBULIN,GAMMA(IGG) 30 GM/300 ML BTL IVPB ×2 (09:36→11:21)
[2025-05-04] MEDS: Normal Saline Flush 10 ML SYR IVP (09:36)
[2025-05-04 10:15] VITALS: BP 124/75; PULSE 64; RESP 19; TEMP 35.8; O2SAT 96
[2025-05-04 10:32] VITALS: BP 125/73; PULSE 64; RESP 18; TEMP 36.2; O2SAT 97
[2025-05-04 10:47] VITALS: BP 116/69; PULSE 61; RESP 17; TEMP 35.8; O2SAT 97
[2025-05-04 11:20] VITALS: BP 137/83; PULSE 63; RESP 19; TEMP 36.3; O2SAT 97
== END 2025-05-04 03:05 | disposition home or self-care (01) ==
LOC: INF 03:04
PROVIDERS: PCP Internal Medicine; Visit Provider Internal Medicine
DX: G61.81 Chronic inflammatory demyelinating polyneuritis (principal); G70.00 Myasthenia gravis without (acute) exacerbation
CPT/HCPCS: 96365; 96366; J1569

== ENCOUNTER 2025-06-01 01:14 | Outpatient (CLI) | payer MEDICARE, BC, SELFPAY ==
[2025-06-01] VITALS (7 sets, daily range): BP systolic 102–134; BP diastolic 64–85; PULSE 55–69; RESP 17–18; TEMP 36–36.4; O2SAT 95–97
[2025-06-01] MEDS: IMMUNE GLOBULIN,GAMMA(IGG) 30 GM/300 ML BTL IVPB ×2 (09:19→11:09)
[2025-06-01] MEDS: Normal Saline Flush 10 ML SYR IVP (09:19)
== END 2025-06-01 01:15 | disposition home or self-care (01) ==
LOC: INF 01:15
PROVIDERS: PCP Internal Medicine; Visit Provider Internal Medicine
DX: G70.00 Myasthenia gravis without (acute) exacerbation (principal)
CPT/HCPCS: 96365; 96366; J1569

== ENCOUNTER 2025-06-29 03:16 | Outpatient (CLI) | payer MEDICARE, BC, SELFPAY ==
[2025-06-29] VITALS (7 sets, daily range): BP systolic 109–134; BP diastolic 67–85; PULSE 60–70; RESP 17; TEMP 36.2–36.4; O2SAT 95–98
[2025-06-29] MEDS: [UNRECOGNIZED DRUG - OTHER] IVPB (09:25)
[2025-06-29] MEDS: Normal Saline Flush 10 ML SYR IVP (09:25)
[2025-06-29] MEDS: [UNRECOGNIZED DRUG - OTHER] IVPB ×2 (10:22→11:20)
== END 2025-06-29 03:17 | disposition home or self-care (01) ==
LOC: INF 03:17
PROVIDERS: PCP Internal Medicine; Visit Provider Psychiatry & Neurology Neurology
DX: G70.00 Myasthenia gravis without (acute) exacerbation (principal)
CPT/HCPCS: 96365; 96366; J1569

== ENCOUNTER 2025-07-26 00:36 | Outpatient (CLI) | payer MEDICARE, BC, SELFPAY ==
[2025-07-26 10:15] VITALS: BP 134/79; PULSE 67; RESP 18; TEMP 36.4; O2SAT 94
[2025-07-26] MEDS: [UNRECOGNIZED DRUG - OTHER] IVPB (10:15)
[2025-07-26 10:30] VITALS: BP 109/68; PULSE 65; RESP 18; TEMP 36.4; O2SAT 100
[2025-07-26 10:45] VITALS: BP 129/68; PULSE 60; RESP 18; TEMP 36.4; O2SAT 99
[2025-07-26 11:15] VITALS: BP 125/76; PULSE 58; RESP 18; TEMP 36.3; O2SAT 100
[2025-07-26 11:45] VITALS: BP 147/98; PULSE 55; RESP 18; TEMP 36.4; O2SAT 98
[2025-07-26] MEDS: IMMUNE GLOBULIN IV ×2 (11:52→12:31)
[2025-07-26] MEDS: [UNRECOGNIZED DRUG - OTHER] IV ×2 (11:52→12:31)
[2025-07-26 13:18] VITALS: BP 149/88; PULSE 56; RESP 18; TEMP 36.4; O2SAT 97
[2025-07-26] MEDS: Normal Saline Flush 10 ML SYR IVP (13:20)
== END 2025-07-26 00:37 | disposition home or self-care (01) ==
LOC: INF 00:36
PROVIDERS: PCP Internal Medicine; Visit Provider Nurse Practitioner Family
DX: G70.00 Myasthenia gravis without (acute) exacerbation (principal)
CPT/HCPCS: 96365; 96366; J1569